=== PATIENT | female | born 1985 | race Caucasian/White ===

== ENCOUNTER 2016-04-19 18:24 | Emergency (ER) | payer OTHER ==
[~2016-04-19] VITALS: Ht 160 cm; Wt 70.1 kg
[~2016-04-19 18:24] MED LIST: NEBI10TA2 PO; NORE1TAB70 PO
[2016-04-19 18:32] VITALS: Ht 160 cm; Wt 70.1 kg
[2016-04-19] MEDS ORDERED: ONDANSETRON INJ 2 MG/ML 2 ML VIAL IV STA ×2 (19:28→21:54)
[2016-04-19] MEDS ORDERED: KETOROLAC TROMETHAMINE 30 MG/ML VIAL IV STA (19:28)
[2016-04-19] MEDS ORDERED: SODIUM CHLORIDE 0.9% 1000ML 1,000 ML IV STA ×2 (19:28→21:06)
[2016-04-19] MEDS ORDERED: FLUT1INH PO (19:37)
[2016-04-19] MEDS ORDERED: GUAISYP4 PO (19:37)
[2016-04-19] MEDS ORDERED: PSEU30TA20 PO (19:37)
[2016-04-19] MEDS ORDERED: IBUP-1050 PO (19:37)
[2016-04-19] MEDS ORDERED: ACET-1256 PO (19:37)
[2016-04-19 20:05] LABS: BASO % 0.2 %; BASO ABS # 0.01 K/uL (0-0.2); COMPLETE YES; HEMATOCRIT 39.8 % (37-47); LYMPH % 20.6 %; MEAN CORPUSCULAR HEMOGLOBIN 31.1 pg (25-34); MEAN CORPUSCULAR HGB CONC 36.2 g/dl (32-36); MEAN PLATELET VOLUME 10.2 fL (7.4-10.4); MONO % 11.5 %; NEUT % 67.7 %; PLATELET COUNT 180 K/uL (130-400); RED BLOOD COUNT 4.63 M/uL (4.2-5.4); WHITE BLOOD COUNT 4.86 K/uL (4.8-10.8)
[2016-04-19 20:30] LABS: BUN/CREATININE RATIO 14.2 (10-20); CALCIUM 8.9 mg/dl (8.5-10.1); CREATININE 0.72 mg/dl (0.60-1.20); MAGNESIUM 2.2 mg/dl (1.8-2.4); POTASSIUM 3.5 mmol/L (3.5-5.1)
[2016-04-19 20:33] LABS: ALB/GLOB RATIO 1.1 (0.9-2)
[2016-04-19 22:57] LABS: PREG INTERNAL NEGATIVE QC NEG CLEAR BACKGROUND; PREG INTERNAL POSITIVE QC POS CONTROL LINE
[2016-04-19 23:31] LABS: URINE APPEARANCE CLOUDY (CLEAR); URINE COLOR DK YELLOW; URINE EPITHELIAL CELL AUTO >30 /lpf (0-5); URINE NITRITE NEG (NEG); URINE PH 5.5 (4.5-7.5); UROBILINOGEN POS (NEG); ZZUR CULT IF INDIC CLEAN CATCH YES
[2016-04-19 23:34] LABS: MANUAL MICROSCOPIC REQUIRED? NO; REVIEW REQ? YES
[2016-04-19 23:35] LABS: URINE BILIRUBIN NEG (NEG)
[2016-04-19 23:36] VITALS: TEMP 36.3
[2016-04-20 00:09] LABS: URINE PATH CASTS 0-3 GRANULAR CASTS /lpf (0)
[2016-04-20] MEDS ORDERED: CEFTRIAXONE SOD INJ 1 GM ADDVIAL IV STA (00:12)
[2016-04-20] MEDS ORDERED: SULF800T23 PO (00:21)
[2016-04-20] MEDS ORDERED: ONDA4TAB10 SL (00:21)
--- NOTE | 2016-04-20 00:24 | EMERGENCY ROOM VISIT NOTE ---
History First contact with patient: 19:16 Chief Complaint: VOMITING Stated Complaint: VOMITING , DIARRHEA Nursing Triage Summary: Patient states ill since Saturday told by pcp she has influenza states "they did nothing" Patient and mother concerned she has not had much intake since Saturday and she may be dehydrated. History of Present Illness The patient is a 30 year old female who presents to the Emergency Department by private vehicle with her family for evaluation of her body aches, cough, nausea , vomiting, diarrhea, and fever. She reports that she developed symptoms including fever, bodyaches, nasal congestion, and cough on Saturday. She was seen yesterday at her primary care provider's office and diagnosed with influenza. She was provided an albuterol inhaler with moderate relief of symptoms. She reports that she developed nausea, vomiting, and diarrhea over the last 24 hours which has worsened. She reports that she's had no blood in her vomit or stool. She is not been able to keep any food or fluids down. The patient rates her current discomfort as a 7/10. She denies any abdominal pain. She denies any headaches, blurry vision, double vision, slurred speech, facial droop, unilateral weakness/numbness, chest pain, palpitations, hemoptysis , hematemesis, hematochezia, melena, hematuria, or dysuria. She denies any chance for . Review of Systems A complete 10-point Review of Systems was discussed with the patient, with pertinent positives and negatives listed in the History of Present Illness. All remaining Review of Systems questions can be considered negative unless otherwise specified. Social History Smoking Status: Never Smoker Smokeless Tobacco Use: No Alcohol Use: none Drug Use: none Marital Status: single Occupation Status: employed Current/Historical Medications Scheduled Fluticasone Furoate-Vilanterol (Breo Ellipta), 1 PUFF PO DAILY Nebivolol Hcl (Bystolic), 10 MG PO DAILY Pseudoephedrine (Sudafed), 30 MG PO DIRECTED Sulfa/Trimethoprim (Bactrim Ds 800MG/160MG), 1 TAB PO BID Scheduled PRN Acetaminophen (Tylenol), 1,000 MG PO DIRECTED PRN for Pain Guaifenesin/Codeine (Robitussin-Ac Syrup), 20 ML PO Q4H PRN for Cough Ibuprofen (Advil), 200 MG PO DIRECTED PRN for Fever Ondasetron Odt (Zofran Odt), 1 TAB SL Q6 PRN for Nausea or Vomiting Allergies Coded Allergies: Levofloxacin (Verified Allergy, Unknown, ., 12/27/13) Physical Exam Vital Signs Date Time Temp Pulse Resp B/P Pulse Ox O2 Delivery O2 Flow Rate FiO2 04/20/16 00:44 89 16 119/71 97 Room Air 04/19/16 23:36 36.3 79 20 117/65 97 Room Air 04/19/16 22:08 92 16 117/77 99 Room Air 04/19/16 20:09 78 18 124/82 98 Room Air 04/19/16 18:32 37.8 106 20 128/87 95 Room Air Pain Rating (0-10): 7 Physical Exam VITAL SIGNS - Vital signs and nursing notes were reviewed. GENERAL - 30-year-old female appearing her stated age who is in no acute distress. Communicates well with provider and answers questions appropriately. HEAD - NC/AT. EYES - PERRL with EOMI bilaterally. Sclera anicteric. Palpebral conjunctiva pink and moist with no injection noted. EARS - No deformities of external structures noted on gross examination bilaterally. No pain elicited with palpation of the tragus bilaterally. External auditory canals without discharge or otorrhea. Tympanic membranes pearly burgos without retraction or bulging. NOSE - Midline and without cyanosis. No epistaxis or purulent drainage noted. Septum midline without deviation or septal hematoma noted. MOUTH/OROPHARYNX - Without perioral cyanosis. Buccal mucosa pink and moist and without leukoplakia. Tongue midline with equal elevation of palate bilaterally. No tonsillar hypertrophy, erythema, or exudates noted. Good dentition noted. NECK - Neck with FROM. Supple to palpation. No nuchal rigidity. LUNGS - Chest wall symmetric without accessory muscle use, intercostals retractions, or central cyanosis. Normal vesicular breath sounds CTA B/L. No wheezes, rales, or rhonchi appreciated. CARDIAC - RRR with S1/S2. No murmur, rubs, or gallops appreciated. ABDOMEN - Abdominal contour flat and without pulsations or visible masses. BS normoactive all four quadrants. No tenderness to palpation appreciated throughout. No guarding. No Rebound Tenderness. Negative Rovsing's. Negative Galdamez's. No palpable masses, hepatosplenomegaly, or ascites noted. EXTREMITIES - No clubbing or peripheral cyanosis. No pretibial edema present. +3 /5 radial and dorsalis pedis pulses palpated throughout. PSYCH - A&Ox3 and cooperates fully with examiner. Pt is very pleasant and interacts well with examiner. Medical Decision & Procedures Laboratory Results 04/19/16 19:50 Red Blood Count 4.63, Mean Corpuscular Volume 86.0, Mean Corpuscular Hemoglobin 31.1, Mean Corpuscular Hemoglobin Concent 36.2, Mean Platelet Volume 10.2, Neutrophils (%) (Auto) 67.7, Lymphocytes (%) (Auto) 20.6, Monocytes (%) (Auto) 11.5, Eosinophils (%) (Auto) 0.0, Basophils (%) (Auto) 0.2, Neutrophils # (Auto ) 3.29, Lymphocytes # (Auto) 1.00, Monocytes # (Auto) 0.56, Eosinophils # (Auto ) 0.00, Basophils # (Auto) 0.01 04/19/16 19:50 Test 04/19/16 19:25 04/19/16 19:50 04/19/16 22:44 Influenza Type A Antigen Neg for Influ A (NEG) Influenza Type B Antigen POS for Influ B (NEG) White Blood Count 4.86 K/uL (4.8-10.8) Red Blood Count 4.63 M/uL (4.2-5.4) Hemoglobin 14.4 g/dL (12.0-16.0) Hematocrit 39.8 % (37-47) Mean Corpuscular Volume 86.0 fL (80-100) Mean Corpuscular Hemoglobin 31.1 pg (25-34) Mean Corpuscular Hemoglobin Concent 36.2 g/dl (32-36) Platelet Count 180 K/uL (130-400) Mean Platelet Volume 10.2 fL (7.4-10.4) Neutrophils (%) (Auto) 67.7 % Lymphocytes (%) (Auto) 20.6 % Monocytes (%) (Auto) 11.5 % Eosinophils (%) (Auto) 0.0 % Basophils (%) (Auto) 0.2 % Neutrophils # (Auto) 3.29 K/uL (1.4-6.5) Lymphocytes # (Auto) 1.00 K/uL (1.2-3.4) Monocytes # (Auto) 0.56 K/uL (0.11-0.59) Eosinophils # (Auto) 0.00 K/uL (0-0.5) Basophils # (Auto) 0.01 K/uL (0-0.2) RDW Standard Deviation 38.7 fL (36.4-46.3) RDW Coefficient of Variation 12.2 % (11.5-14.5) Immature Granulocyte % (Auto) 0.0 % Immature Granulocyte # (Auto) 0.00 K/uL (0.00-0.02) Anion Gap 11.0 mmol/L (3-11) Est Creatinine Clear Calc Drug Dose 107.3 ml/min Estimated GFR () 130.2 Estimated GFR (Non- 112.4 BUN/Creatinine Ratio 14.2 (10-20) Calcium Level 8.9 mg/dl (8.5-10.1) Magnesium Level 2.2 mg/dl (1.8-2.4) Total Bilirubin 0.5 mg/dl (0.2-1) Aspartate Amino Transf (AST/SGOT) 16 U/L (15-37) Alanine Aminotransferase (ALT/SGPT) 18 U/L (12-78) Alkaline Phosphatase 59 U/L (45-117) Total Protein 7.5 gm/dl (6.4-8.2) Albumin 3.9 gm/dl (3.4-5.0) Globulin 3.6 gm/dl (2.5-4.0) Albumin/Globulin Ratio 1.1 (0.9-2) Lipase 123 U/L (73-393) Urine Color DK YELLOW Urine Appearance CLOUDY (CLEAR) Urine pH 5.5 (4.5-7.5) Urine Specific Belcher 1.030 (1.000-1.030) Urine Protein 1+ (NEG) Urine Glucose (UA) NEG (NEG) Urine Ketones 3+ (NEG) Urine Occult Blood 3+ (NEG) Urine Nitrite NEG (NEG) Urine Bilirubin NEG (NEG) Urine Urobilinogen POS (NEG) Urine Leukocyte Esterase TRACE (NEG) Urine WBC (Auto) 10-30 /hpf (0-5) Urine RBC (Auto) 0-4 /hpf (0-4) Urine Hyaline Casts (Auto) 5-10 /lpf (0-5) Urine Epithelial Cells (Auto) >30 /lpf (0-5) Urine Bacteria (Auto) 3+ (NEG) Urine Pathogenic Casts 0-3 GRANULAR CASTS /lpf (0) Urine Yeast (Auto) (NONE PRSENT) Urine Test NEG (NEG) Medications Administered Medications (Trade) Dose Ordered Sig/Marilyn Route Start Time Stop Time Status Last Admin Dose Admin Sodium Chloride (Nss 1000ml) 1,000 ml @ 999 mls/hr Q1H1M STAT IV 04/19/16 19:28 04/19/16 20:28 DC 04/19/16 20:05 999 MLS/HR Ondansetron HCl (Zofran Inj) 4 mg NOW STAT IV 04/19/16 19:28 04/19/16 19:30 DC 04/19/16 20:06 4 MG Ketorolac Tromethamine 30 mg 30 mg NOW STAT IV 04/19/16 19:28 04/19/16 19:30 DC 04/19/16 20:06 30 MG Sodium Chloride (Nss 1000ml) 1,000 ml @ 999 mls/hr Q1H1M STAT IV 04/19/16 21:06 04/19/16 22:06 DC 04/19/16 21:34 999 MLS/HR Ondansetron HCl (Zofran Inj) 4 mg NOW STAT IV 04/19/16 21:54 04/19/16 21:55 DC 04/19/16 22:08 4 MG Ceftriaxone Sodium (Rocephin Inj) 1 gm NOW STAT IV 04/20/16 00:12 04/20/16 00:13 DC 04/20/16 00:22 1 GM Trimethoprim/ Sulfamethoxazole (Sulfameth/ Trimeth Ds 800/ 160MG Home Pack) 1 homepack UD ONCE PO 04/20/16 00:30 04/20/16 00:31 DC 04/20/16 00:43 1 HOMEPACK Ondansetron HCl (ZOFRAN ODT 4MG Home Pack) 1 homepack UD ONCE PO 04/20/16 00:30 04/20/16 00:31 DC 04/20/16 00:43 1 HOMEPACK ED Course Patient was seen and evaluated by myself. Labs were drawn, saline lock in place. The patient was hydrated with a 1000 mL normal saline bolus. She received 4 mg Zofran and 30 mg Toradol intravenously. Her fever had broken prior to my evaluation. Laboratory results demonstrate no acute leukocytosis, worrisome anemia, or bandemia. The patient has no significant electrolyte abnormalities. Patient was unable to provide a urine sample. She was treated with an additional 1000 mL of normal saline. She was taking fluids without issue. She was found to be influenza A+. Patient developed return of vomiting. She was treated with 4 mg Zofran intravenously. Urinalysis was finally provided in the patient's urine was consistent with acute UTI. She was treated with 1 g of Rocephin intravenously. The patient was educated on today' s findings. She was offered admission versus conservative management at home. She elected to be discharged home. She was provided a prescription for Bactrim and Zofran for home. She'll follow-up with her primary care provider from today 's visit. She will return for any changing/worsening symptoms. Patient discharged home afebrile and in good condition. Medical Decision Given the patient's presentation and stated complaints, I did elect to perform the above-mentioned workup. The patient presents today with fever, flulike symptoms, nausea, vomiting, and diarrhea. The patient had no leukocytosis. She was monitored well to IV fluid resuscitation and antinausea medication. The patient clinically appeared much better at this time. She was found to have a UTI. She was treated with IV Rocephin. She was provided Zofran and Bactrim to be used at home. She will follow-up with her primary care provider from today's visit. She will return for any changing or worsening symptoms. Patient discharged home afebrile and in good condition. In the evaluation and treatment of this patient, the following differential diagnoses were considered: Meningitis, encephalitis, mono, strep, sepsis, amongst others. Impression Primary Impression: Nausea, vomiting, and diarrhea Additional Impressions: Influenza A UTI (urinary tract infection) Departure Information Dispostion Home / Self-Care Condition GOOD Prescriptions Ondasetron Odt (ZOFRAN ODT) 4 Mg Tab 1 TAB SL Q6 Y for Nausea or Vomiting for 5 Days, #20 TAB Prov: Jose Ritter PA-C 04/20/16 Sulfa/Trimethoprim (Bactrim Ds 800MG/160MG) Tab 1 TAB PO BID for 5 Days, #10 TAB Prov: Jose Ritter PA-C 04/20/16 Referrals Maynor Aguirre M.D. (PCP) Patient Instructions ED Influenza Ch, My [facility], UTI Additional Instructions You have been treated in the Emergency Department for a Influenza, Urinary Tract Infection (UTI). You have been prescribed Bactrim to be taken as prescribed. This is an antibiotic. All antibiotics have the potential to cause diarrhea. Stop this medication and contact a medical provider if you were to develop any significant adverse side effects including: wheezing, shortness of breath, passing out, vomiting, or a diffuse rash. Always take antibiotics as directed and COMPLETE the ENTIRE course regardless of the improvement of your symptoms. For pain control, you can use the following [id number]-mojkmqi medicines (if >12 yo): - Regular strength (325mg/tab) Tylenol (acetaminophen) 2 tabs every 4-6 hours as needed. Do not exceed 12 tablets in a 24 hour period. Avoid taking more than 4 grams (4000 mg) of Tylenol per day. This includes any other sources of acetaminophen you may take on a regular basis. - Regular strength (200 mg/tab) Advil (ibuprofen) 1-2 tabs every 4-6 hours as needed. Do not exceed a dose of 3200 mg per day. Drink plenty of water and stay well hydrated. As with any trip to the Emergency Department, you should follow-up with your Primary Care Provider from today's visit. Return to the emergency department if your symptoms persist despite treatment plan outlined above or if the following symptoms occur: increased fevers, chills , low back pain, nausea/vomiting, or blood in your urine. Problem Qualifiers Additional Impressions: UTI (urinary tract infection) Urinary tract infection type: site unspecified Hematuria presence: without hematuria Qualified Codes: N39.0 - Urinary tract infection, site not specified
[2016-04-20] MEDS ORDERED: SEPTRA DS HOME PACK 1 EA VIAL PO ONE (00:30)
[2016-04-20] MEDS ORDERED: ONDANSETRON HOME PACK 4MG OD TAB PO ONE (00:30)
[2016-04-20 00:44] VITALS: BP 119/71; PULSE 89; O2SAT 97
== END 2016-04-20 00:55 | disposition home or self-care (01) ==
LOC: C.EDB 18:27 → C.EDC 04-20 00:55
DX: J09.X2 Influenza due to identified novel influenza A virus with other respiratory manifestations (principal); R11.2 Nausea with vomiting, unspecified; R19.7 Diarrhea, unspecified; N39.0 Urinary tract infection, site not specified; Z79.899 Other long term (current) drug therapy; Z88.8 Allergy status to other drugs, medicaments and biological substances

== ENCOUNTER → 2016-07-27 | Outpatient (CLI) | payer OTHER ==
[~2016-07-27] MED LIST changes: +ACET-1256 PO; +FLUT1INH PO; +GUAISYP4 PO; +IBUP-1050 PO; -NORE1TAB70 PO; +PSEU30TA20 PO; +VALA1TAB2 PO
== END | disposition home or self-care (01) ==
LOC: C.PAPS 14:32
PROVIDERS: ATTEND Physician Assistant
DX: Z01.419 Encounter for gynecological examination (general) (routine) without abnormal findings (principal)

== ENCOUNTER 2017-01-17 05:39 | Emergency (ER) | payer OTHER ==
[~2017-01-17] VITALS: Ht 162.6 cm; Wt 75.4 kg
[~2017-01-17 05:39] MED LIST changes: -VALA1TAB2 PO
[2017-01-17 05:43] VITALS: TEMP 37; Ht 162.6 cm; Wt 75.4 kg
[2017-01-17] MEDS ORDERED: OXYCODONE IR HOME PACK PO ONE (06:00)
[2017-01-17] MEDS ORDERED: VALA1TAB2 PO (06:10)
[2017-01-17 06:27] VITALS: BP 125/88; PULSE 78; O2SAT 99
--- NOTE | 2017-01-17 06:29 | EMERGENCY ROOM VISIT NOTE ---
History First contact with patient: 05:58 Chief Complaint: HEAD PAIN Stated Complaint: BUMP ON HEAD-PAIN History of Present Illness The patient is a 31 year old female who presents to the Emergency Room with complaints of painful burning rash to the left side of her scalp for the past day that is getting worse. Pain currently 5 out of 10. Nothing makes it better or worse. Patient states it feels like a burning area. She saw the family doctor yesterday and was unsure what was going on. The rash has spread. She had chickenpox as a child. Patient had a burning pain before the rash. Patient denies fevers, eye pain, ear pain, nasal pain, chest pain, dyspnea, cough, congestion. Review of Systems See HPI for pertinent positives & negatives. A total of 10 systems reviewed and were otherwise negative. Past Medical/Surgical History HTN Social History Smoking Status: Never Smoker Alcohol Use: none Drug Use: none Marital Status: single Occupation Status: employed Current/Historical Medications Scheduled Fluticasone Furoate-Vilanterol (Breo Ellipta), 1 PUFF PO DAILY Nebivolol Hcl (Bystolic), 10 MG PO DAILY Pseudoephedrine (Sudafed), 30 MG PO DIRECTED Valacyclovir Hcl (Valtrex), 1,000 MG PO TID Scheduled PRN Acetaminophen (Tylenol), 1,000 MG PO DIRECTED PRN for Pain Guaifenesin/Codeine (Robitussin-Ac Syrup), 20 ML PO Q4H PRN for Cough Ibuprofen (Advil), 200 MG PO DIRECTED PRN for Fever Physical Exam Vital Signs Date Time Temp Pulse Resp B/P (MAP) Pulse Ox O2 Delivery O2 Flow Rate FiO2 01/17/17 05:43 37.0 83 18 133/87 98 Room Air Physical Exam VITALS: Vitals are noted on the nurse's note and reviewed by myself. Vital signs stable. GENERAL: Pleasant female, in no acute distress, nondiaphoretic, well-developed well-nourished. SKIN: left C2 dermatome with painful grouped erythematous papules. The rest of the skin was without rashes, erythema, edema, or bruising. There is no tenting of the skin. Capillary reflex less than 2 seconds. HEAD: Normocephalic atraumatic. EARS: External auditory canals clear, tympanic membranes pearly burgos without erythema or effusion bilaterally. No rash to the inner ear canals EYES: Pupils equal round and reactive to light and accommodation. Conjunctivae without injection, sclerae without icterus. Extraocular movements intact.. no ocular involvement of herpes zoster NOSE: Patent, turbinates without inflammation or discharge. No sinus tenderness. No rash to the nose. MOUTH: Mucous membranes moist. Pharynx without erythema or exudate. Uvula midline. Airway patent. Tongue does not deviate. NECK: Supple without nuchal rigidity. No lymphadenopathy. No thyromegaly. Cervical spine is nontender. No JVD. HEART: Regular rate and rhythm without murmurs gallops or rubs. LUNGS: Clear to auscultation bilaterally without wheezes, rales or rhonchi. No dullness to percussion. No retractions or accessory muscle use. ABDOMEN: Positive bowel sounds x 4. Normal tympanic percussion. Soft, nontender, without masses or organomegaly. Galdamez sign negative. No guarding or rebound tenderness. MUSCULOSKELETAL: No muscle atrophy, erythema, or edema noted. NEURO: Patient was alert and oriented to person place and time. Normal sensation to light and sharp touch. No focal neurological deficits. Medical Decision & Procedures ED Course Prior records/ancillary studies reviewed. Triage Nursing notes reviewed. Additional history obtained from family The patient's history was concerning for a rash. Differential diagnosis: Etiologies such as contact dermatitis, viral exanthem, urticaria, allergic reaction, Berumen-Rishi syndrome, toxic epidermal necrolysis, erythema multiforme, cellulitis, scabies, HSV, varicella, zoster, eczema, staph scalded skin syndrome, fungal infection, as well as others were entertained. Physical examination: As above ER treatment provided: Valtrex On reassessment the patient felt better. Diagnostic interpretation by me: Deferred The etiology for the patient's rash appears to be consistent with herpes zoster. Patient had burning sensation prior to the rash. It is over the C2 dermatome on the left side. There is no ocular involvement. There was no ear involvement. No rash the nose. Patient was counseled on diagnosis and signs and symptoms. Patient states she was healthy with no active medical problems. Patient was neurovascularly and neurologically intact. She was well-appearing. She is advised follow-up family care in a few days or here in the ER sooner for eye pain, ear pain, worsening signs or symptoms or as needed. By the evaluation outlined above emergent etiologies such as Berumen-Rishi syndrome, toxic epidermal necrolysis, erythema multiforme, cellulitis, scabies, HSV, staph scalded skin syndrome, urticaria, allergic reaction, as well as others were deemed relatively unlikely. The pt informed about the findings as listed above. All questions were answered and pleased with the treatment. Return instructions were outlined and the patient was discharged in stable condition. Outpatient prescription management: Valtrex Referral: The patient was referred back to their primary care physician for follow-up in 2 -3 days for a recheck of the current condition. Medical Decision As above Medication Reconcilliation Current Medication List: was personally reviewed by me Blood Pressure Screening Patient's blood pressure: Normal blood pressure Impression Primary Impression: Herpes zoster Departure Information Dispostion Home / Self-Care Condition GOOD Prescriptions Valacyclovir Hcl (VALTREX) 1 Gm Tab 1000 MG PO TID for 7 Days, #21 TAB Prov: Celia Blackwell .BERTHA 01/17/17 Forms WORK / SCHOOL INSTRUCTIONS, HOME CARE DOCUMENTATION FORM, IMPORTANT VISIT INFORMATION Patient Instructions Shingles Herpes Zoster, My [facility] Additional Instructions Valtrex 1 g 3 times a day for 7 days.. Any medication can cause an allergic reaction, stop the pills immediately and return to the ER for rash, hives, breathing difficulties, or swelling. Oxycodone (OxyIR) 5mg: Take 1-2 pills every four hours for breakthrough pain. Avoid alcohol, operating machinery or dangerous equipment, working on ladders or roofs, DRIVING, or situations where being under the influence may be dangerous. It is recommended to use an lpkn-rft-keeveah stool softener such as Colace, 100mg twice daily while taking this medication to avoid constipation. Ibuprofen(Motrin, Advil) may be used for fever or pain. Use 600mg every six hours as needed. Take with food. Avoid using more than 2400mg in a 24 hour period. Do not use 2400mg per day for more than three consecutive days without physician direction. Prolonged inappropriate use can lead to stomach upset or ulcers. (AND/OR) Acetaminophen(Tylenol) may be used for fever or pain. Use 1000mg every six hours as needed. Avoid using more than 3000mg in a 24 hour period. Rest and drink plenty of fluids as tolerated. Continue current medications. Do not scratch at the area. Your rash might spread a little bit more before it gets better. It may take a few weeks to clear up. You may have chronic pain to the area. Return to the ER immediately for eye pain, vision problems, inner ear pain, abdominal pain, vomiting, fevers, chest pains, difficulty breathing, worsening of your condition, or as needed. Follow up with your primary physician in 2-3 days for a recheck of your current condition. Problem Qualifiers Primary Impression: Herpes zoster Herpes zoster complications: without complications Qualified Codes: B02.9 - Zoster without complications
== END 2017-01-17 06:28 | disposition home or self-care (01) ==
LOC: C.EDB 05:40 → C.EDA 06:28
DX: B02.9 Zoster without complications (principal); I10 Essential (primary) hypertension; Z79.899 Other long term (current) drug therapy

== ENCOUNTER 2017-06-12 18:55 | Emergency (ER) | payer OTHER ==
[~2017-06-12] VITALS: Ht 162.6 cm; Wt 78.2 kg
[~2017-06-12 18:55] MED LIST changes: -ACET-1256 PO
[2017-06-12 18:59] VITALS: TEMP 36.8; Ht 162.6 cm; Wt 78.2 kg
[2017-06-12] MEDS ORDERED: METOCLOPRAMIDE HCL INJ 5 MG/ML 2 ML VIAL IV STA (19:19)
[2017-06-12] MEDS ORDERED: SODIUM CHLORIDE 0.9% 1000ML 2,000 ML IV STA (19:19)
[2017-06-12] MEDS ORDERED: PRENTAB89 PO (19:27)
[2017-06-12] MEDS ORDERED: MULT-240 PO (19:27)
--- NOTE | 2017-06-12 19:30 | EMERGENCY ROOM VISIT NOTE ---
History Report prepared by Natalee: Sherley Rogers Under the Supervision of: Dr. Medhat Oliveira M.D. First contact with patient: 19:15 Chief Complaint: FLU LIKE SX Stated Complaint: ACHES,NECK,LEGS,JEFFRIES,FEVER History of Present Illness The patient is a 31 year old female who presents to the Emergency Room with complaints of flu-like symptoms beginning today. The patient reports having a fever, headache, body aches, neck pain, and fatigue. She denies having nausea, vomiting, and diarrhea. The patient reports taking Tylenol today for her symptoms. The patient reports that she is 4 weeks and states that she was referred by her OBGYN's nurse. The patient states that she started Amoxicillin 3 days ago for a UTI. The patient reports having white vaginal discharge today, but denies having vaginal bleeding. She reports a history of hypertension but states that she stopped taking her blood pressure medication about 6 months ago. Source of History: patient Onset: today Position: other (global) Quality: other (flu-like symptoms ) Associated Symptoms: + fevers, + headache, + neck pain, + fatigue, No nausea , No vomiting, No diarrhea Note: additional symptoms: body aches, white vaginal discharge denies: bloody vaginal discharge Review of Systems See HPI for pertinent positives and negatives. A total of ten systems were reviewed and were otherwise negative. Family History Cancer Diabetes mellitus Heart disease Hypertension Social History Smoking Status: Never Smoker Alcohol Use: none Drug Use: none Marital Status: single Occupation Status: employed Current/Historical Medications Scheduled Miconazole Nitrate Vaginal (Miconazole Nitrate), 1 APPL TOP DAILY Multiple Vitamins W/ Minerals (Womens One Daily), 1 TAB PO DAILY Multivit-Min W/Fe-Fa ( And Iron), 1 TAB PO DAILY Scheduled PRN Acetaminophen (Tylenol), 1,000 MG PO UD PRN for Pain Allergies Coded Allergies: Levofloxacin (Verified Allergy, Unknown, ., 12/27/13) Physical Exam Vital Signs Date Time Temp Pulse Resp B/P (MAP) Pulse Ox O2 Delivery O2 Flow Rate FiO2 06/12/17 23:48 86 16 128/81 98 06/12/17 22:50 104 18 136/88 98 Room Air 06/12/17 20:53 106 18 135/88 100 Room Air 06/12/17 18:59 36.8 84 18 137/75 99 Room Air Physical Exam GENERAL: Awake, alert, anxious and fatigued-appearing, in no distress HENT: Normocephalic, atraumatic. Dry mucous membranes, otherwise oropharynx unremarkable. EYES: Normal conjunctiva. Sclera non-icteric. NECK: Supple. No nuchal rigidity. FROM. No JVD. RESPIRATORY: Clear to auscultation. CARDIAC: Regular rate, normal rhythm. Extremities warm and well perfused. Pulses equal. ABDOMEN: Soft, non-distended. No tenderness to palpation. No rebound or guarding. No masses. RECTAL: Deferred. : No lesions. Moderate thick white discharge. No CMT or AT. MUSCULOSKELETAL: Chest examination reveals no tenderness. The back is symmetrical on inspection without obvious abnormality. There is no CVA tenderness to palpation. No joint edema. LOWER EXTREMITIES: Calves are equal size bilaterally and non-tender. No edema. No discoloration. NEURO: Normal sensorium. No sensory or motor deficits noted. SKIN: No rash or jaundice noted. Medical Decision & Procedures ER Provider Diagnostic Interpretation: Radiology results as stated below per my review and radiologist interpretation: ULTRASOUND CLINICAL HISTORY: Elevated hcg, fevers, r/o ectopic COMPARISON STUDY: CT of the abdomen and pelvis December 27, 2013. TECHNIQUE: Transabdominal and transvaginal sonography of the pelvis was performed. FINDINGS: No intrauterine gestational sac is identified. The endometrium measures 1.5 cm in thickness. Right ovary measures 4 x 4.7 x 3.1 cm and contains a 3.1 x 2.6 x 3 cm complex hypoechoic lesion with adjacent hypervascularity. This suggests a corpus luteal cyst. The left ovary is normal, measuring 2.9 x 1.6 x 2.6 cm. There is color flow within each ovary. No adnexal mass is identified. A small amount of fluid is noted within the pelvis which is simple appearing. IMPRESSION: 1. No intrauterine gestational sac identified. Thickened endometrium, measuring 1.5 cm. Given positive test, differential considerations include a normal early intrauterine gestation, missed spontaneous and sonographically occult ectopic . Close clinical follow-up, including serial beta hCG levels and follow-up pelvic ultrasound is recommended. 2. 3.1 cm complex hypoechoic right ovarian lesion suggestive of a corpus luteal cyst. 3. Small amount of fluid within the pelvis. Electronically signed by: Amos Vaughn M.D. 06/12/2017 9:56 PM Dictated Date/Time: 06/12/2017 9:53 PM Laboratory Results 06/12/17 19:46 Red Blood Count 4.62, Mean Corpuscular Volume 87.4, Mean Corpuscular Hemoglobin 30.7, Mean Corpuscular Hemoglobin Concent 35.1, Mean Platelet Volume 9.7, Neutrophils (%) (Auto) 63.5, Lymphocytes (%) (Auto) 24.7, Monocytes (%) (Auto) 10.4, Eosinophils (%) (Auto) 0.9, Basophils (%) (Auto) 0.2, Neutrophils # (Auto ) 4.09, Lymphocytes # (Auto) 1.59, Monocytes # (Auto) 0.67, Eosinophils # (Auto ) 0.06, Basophils # (Auto) 0.01 06/12/17 19:46 Test 06/12/17 19:31 06/12/17 19:45 06/12/17 19:46 06/12/17 22:50 Influenza Type A (RT-PCR) Neg for Influ A (NEG) Influenza Type B (RT-PCR) Neg for Influ B (NEG) Urine Color YELLOW Urine Appearance CLEAR (CLEAR) Urine pH 7.0 (4.5-7.5) Urine Specific [place] 1.014 (1.000-1.030) Urine Protein NEG (NEG) Urine Glucose (UA) NEG (NEG) Urine Ketones NEG (NEG) Urine Occult Blood NEG (NEG) Urine Nitrite NEG (NEG) Urine Bilirubin NEG (NEG) Urine Urobilinogen NEG (NEG) Urine Leukocyte Esterase NEG (NEG) White Blood Count 6.44 K/uL (4.8-10.8) Red Blood Count 4.62 M/uL (4.2-5.4) Hemoglobin 14.2 g/dL (12.0-16.0) Hematocrit 40.4 % (37-47) Mean Corpuscular Volume 87.4 fL (80-100) Mean Corpuscular Hemoglobin 30.7 pg (25-34) Mean Corpuscular Hemoglobin Concent 35.1 g/dl (32-36) Platelet Count 222 K/uL (130-400) Mean Platelet Volume 9.7 fL (7.4-10.4) Neutrophils (%) (Auto) 63.5 % Lymphocytes (%) (Auto) 24.7 % Monocytes (%) (Auto) 10.4 % Eosinophils (%) (Auto) 0.9 % Basophils (%) (Auto) 0.2 % Neutrophils # (Auto) 4.09 K/uL (1.4-6.5) Lymphocytes # (Auto) 1.59 K/uL (1.2-3.4) Monocytes # (Auto) 0.67 K/uL (0.11-0.59) Eosinophils # (Auto) 0.06 K/uL (0-0.5) Basophils # (Auto) 0.01 K/uL (0-0.2) RDW Standard Deviation 39.8 fL (36.4-46.3) RDW Coefficient of Variation 12.4 % (11.5-14.5) Immature Granulocyte % (Auto) 0.3 % Immature Granulocyte # (Auto) 0.02 K/uL (0.00-0.02) Anion Gap 5.0 mmol/L (3-11) Est Creatinine Clear Calc Drug Dose 93.8 ml/min Estimated GFR () 101.5 Estimated GFR (Non- 87.6 BUN/Creatinine Ratio 10.8 (10-20) Calcium Level 9.0 mg/dl (8.5-10.1) Total Bilirubin 0.4 mg/dl (0.2-1) Direct Bilirubin 0.1 mg/dl (0-0.2) Aspartate Amino Transf (AST/SGOT) 22 U/L (15-37) Alanine Aminotransferase (ALT/SGPT) 23 U/L (12-78) Alkaline Phosphatase 65 U/L (45-117) Total Protein 7.9 gm/dl (6.4-8.2) Albumin 4.0 gm/dl (3.4-5.0) Lipase 171 U/L (73-393) Human Chorionic Gonadotropin, Quant 85 mIU/mL Date/Time Source Procedure Growth Status 06/12/17 22:50 Vaginal Drainage Trichomonas Preparation - Final Complete Laboratory results reviewed by me Medications Administered Medications (Trade) Dose Ordered Sig/Marilyn Route Start Time Stop Time Status Last Admin Dose Admin Sodium Chloride 2,000 ml @ 999 mls/hr Q2H1M STAT IV 06/12/17 19:19 06/12/17 21:19 DC 06/12/17 19:54 999 MLS/HR Sodium Chloride 1,000 ml @ 999 mls/hr Q1H1M STAT IV 06/12/17 22:50 06/12/17 23:50 DC 06/12/17 23:06 999 MLS/HR Acetaminophen (Tylenol Tab) 1,000 mg NOW STAT PO 06/12/17 22:52 06/12/17 22:53 DC 06/12/17 23:07 1,000 MG ED Course 1917: The patient was evaluated in room C5. A complete history and physical exam was performed. 2057: I reevaluated the patient. I ordered a transvaginal ultrasound. 2212: The patient reports feeling a bit better but still feels achy. Medical Decision I reviewed the patient's past medical history, medications, and the nursing notes as described above. Differential diagnosis: Etiologies such as viral syndrome, otitis, pharyngitis, pneumonia, influenza, meningitis, urinary tract infection, sepsis, bacteremia, as well as others were entertained. The patient is a 31-year-old woman who presents emergency department with fevers , body aches and generalized fatigue over the past couple of days per hpi. Of note, the symptoms occur in the setting of having a positive test at urgent care. Her last menstrual period was May 10 estimating her GA of approximately 4 weeks. On arrival the patient is fatigued appearing but no acute distress, afebrile stable vital signs. WBC within normal limits. Chemistry unremarkable. The patient's hCG is only 85 which is low for a 4 week fetus. Thus given the patient's fevers and systemic symptoms ectopic is in the differential despite lack of abdominal pain. Transvaginal ultrasound was performed and demonstrates small amount of free fluid, thickened endometrium but no definitive IUP, thus with broad differential including early IUP, versus missed , versus occult ectopic . Pelvic exam does demonstrate some moderate thick white discharge consistent with candidal infection. Otherwise the patient's pelvic exam itself was typical for the patient in that she always has significant pain and this discomfort today was not any different. No CMT or adnexal tenderness. GCC, trichomonas, HSV were sent and pending. Case was discussed with Dr. Gregory, OB console operator, who agrees that we can have the patient follow-up outpatient with a 48 hour hCG. We agreed to hold any empiric treatment for GCC given no clear exam findings to suggest infection and likely viral illness as etiology for the patient's symptoms. Findings and plan for follow-up reviewed with patient. Patient agreeable and d/c 'd per discharge instructions. Consults Time Called: 2320 Consulting Physician: Dr. Gregory, CHARISSE SAP BUSINESS ANALYST Returned Call: [phone] Patient to follow in clinic for 48 hour repeat hcg and further f/u. Impression Primary Impression: Myalgia Additional Impressions: Dehydration Elevated serum hCG Vaginal candidiasis Scribe Attestation The scribe's documentation has been prepared under my direction and personally reviewed by me in its entirety. I confirm that the note above accurately reflects all work, treatment, procedures, and medical decision making performed by me. Departure Information Dispostion Home / Self-Care Prescriptions Miconazole Nitrate Vaginal (MICONAZOLE NITRATE) 2 % Cre 1 APPL TOP DAILY for 7 Days, #1 TUBE Insert 1 applicatorful intravaginally at bedtime for 7 days Prov: Medhat Oliveira M.D. 06/12/17 Referrals No Doctor, Assigned (PCP) Rufina Gregory MD Patient Instructions ED Dehydration, ED Muscle Aching, ED Vaginal Infec Fungal Emi, My [facility] Additional Instructions Please follow up with your obstetricians office to arrange for a 48-hour repeat hcg level and re-evaluation. Your symptoms are likely related to dehydration in the setting of a possible early viral illness. You were also found to have a vaginal yeast infection. Your ultrasound did not show evidence of an intrauterine at this time. You should follow closely with your fender mechanic apprentice for repeat hcg levels and ultrasound until a is confirmed or other causes, which could include a miscarriage or ectopic , are investigated. Otherwise, your exam, lab results, and ultrasound did not show signs of an emergent condition at this time. Acetaminophen for pain and fevers as needed. Topical miconazole, antifungal, nightly for 7 days. Drink plenty of fluids to ensure hydration. Return to the emergency department for worsening symptoms as described in the accompanying instructions. Problem Qualifiers
[2017-06-12] MEDS ORDERED: ACET-1256 PO (19:37)
[2017-06-12 19:59] LABS: BASO % 0.2 %; BASO ABS # 0.01 K/uL (0-0.2); EOS % 0.9 %; EOS ABS # 0.06 K/uL (0-0.5); HEMATOCRIT 40.4 % (37-47); HEMOGLOBIN 14.2 g/dL (12.0-16.0); IG# 0.02 K/uL (0.00-0.02); LYMPH % 24.7 %; LYMPH ABS # 1.59 K/uL (1.2-3.4); MEAN CELL VOLUME 87.4 fL (80-100); MEAN CORPUSCULAR HEMOGLOBIN 30.7 pg (25-34); MEAN CORPUSCULAR HGB CONC 35.1 g/dl (32-36); MEAN PLATELET VOLUME 9.7 fL (7.4-10.4); MONO % 10.4 %; MONO ABS # 0.67 K/uL (0.11-0.59); NEUT % 63.5 %; NEUT ABS # 4.09 K/uL (1.4-6.5); PLATELET COUNT 222 K/uL (130-400); RED CELL DISTRIBUTION WIDTH CV 12.4 % (11.5-14.5); RED CELL DISTRIBUTION WIDTH SD 39.8 fL (36.4-46.3); WHITE BLOOD COUNT 6.44 K/uL (4.8-10.8)
[2017-06-12 20:15] LABS: CREATININE 0.88 mg/dl (0.60-1.20); POTASSIUM 3.4 mmol/L (3.5-5.1)
[2017-06-12 20:18] LABS: TOTAL PROTEIN 7.9 gm/dl (6.4-8.2)
[2017-06-12] MEDS: DiphenhydrAMINE HCL 50 MG/ML VIAL IV STA ×2 (21:04→22:05)
[2017-06-12 21:30] LABS: INFLUENZA A PCR Neg for Influ A (NEG); INFLUENZA B PCR Neg for Influ B (NEG)
--- NOTE | 2017-06-12 21:58 | DIAGNOSTIC IMAGING REPORT ---
ULTRASOUND CLINICAL HISTORY: Elevated hcg, fevers, r/o ectopic COMPARISON STUDY: CT of the abdomen and pelvis December 27, 2013. TECHNIQUE: Transabdominal and transvaginal sonography of the pelvis was performed. FINDINGS: No intrauterine gestational sac is identified. The endometrium measures 1.5 cm in thickness. Right ovary measures 4 x 4.7 x 3.1 cm and contains a 3.1 x 2.6 x 3 cm complex hypoechoic lesion with adjacent hypervascularity. This suggests a corpus luteal cyst. The left ovary is normal, measuring 2.9 x 1.6 x 2.6 cm. There is color flow within each ovary. No adnexal mass is identified. A small amount of fluid is noted within the pelvis which is simple appearing. IMPRESSION: 1. No intrauterine gestational sac identified. Thickened endometrium, measuring 1.5 cm. Given positive test, differential considerations include a normal early intrauterine gestation, missed spontaneous and sonographically occult ectopic . Close clinical follow-up, including serial beta hCG levels and follow-up pelvic ultrasound is recommended. 2. 3.1 cm complex hypoechoic right ovarian lesion suggestive of a corpus luteal cyst. 3. Small amount of fluid within the pelvis. Electronically signed by: Amos Vaughn M.D. 06/12/2017 9:56 PM Dictated Date/Time: 06/12/2017 9:53 PM
[2017-06-12] MEDS ORDERED: SODIUM CHLORIDE 0.9% 1000ML 1,000 ML IV STA (22:50)
[2017-06-12] MEDS ORDERED: ACETAMINOPHEN 500 MG TAB PO STA (22:52)
[2017-06-12] MEDS ORDERED: MICONAZOLE NITRATE 2% CR 30 GM TUBE EXT STA (22:52)
[2017-06-12] MEDS ORDERED: MICO2CRE TOP (23:24)
[2017-06-12 23:48] VITALS: BP 128/81; PULSE 86; O2SAT 98
== END 2017-06-12 23:49 | disposition home or self-care (01) ==
LOC: C.EDB 18:57 → C.EDC 23:49
DX: M79.1 Myalgia (principal); E86.0 Dehydration; B37.3 Candidiasis of vulva and vagina; R50.9 Fever, unspecified; I10 Essential (primary) hypertension; Z88.1 Allergy status to other antibiotic agents; Z83.3 Family history of diabetes mellitus; Z82.49 Family history of ischemic heart disease and other diseases of the circulatory system

== ENCOUNTER → 2017-06-18 | Outpatient (CLI) | payer OTHER ==
[~2017-06-18] MED LIST changes: +ACET-1256 PO; +DOCU-94 PO; -FLUT1INH PO; -GUAISYP4 PO; -IBUP-1050 PO; +MICO2CRE TOP; +MULT-240 PO; -NEBI10TA2 PO; +POLY335019 PO; +PRENTAB89 PO; -PSEU30TA20 PO; +PSYL0.524 PO
== END | disposition home or self-care (01) ==
LOC: C.LABPBG 09:51
PROVIDERS: ATTEND Obstetrics & Gynecology
DX: O26.899 Other specified pregnancy related conditions, unspecified trimester (principal); R10.2 Pelvic and perineal pain; Z3A.00 Weeks of gestation of pregnancy not specified

== ENCOUNTER 2017-06-20 12:36 | Emergency (ER) | payer OTHER ==
[~2017-06-20] VITALS: Ht 162.6 cm; Wt 76.0 kg
[~2017-06-20 12:36] MED LIST changes: -DOCU-94 PO; -POLY335019 PO; -PSYL0.524 PO
[2017-06-20 12:53] VITALS: TEMP 36.7; Ht 162.6 cm; Wt 76.0 kg
[2017-06-20] MEDS ORDERED: PSYL0.524 PO (14:58)
[2017-06-20] MEDS ORDERED: DOCU-94 PO (14:58)
[2017-06-20] MEDS ORDERED: POLY335019 PO (14:58)
--- NOTE | 2017-06-20 16:46 | DIAGNOSTIC IMAGING REPORT ---
BILATERAL LOWER EXTREMITY VENOUS DOPPLER HISTORY: Acute bilateral lower extremity pain and swelling bilateral LE pain 5 weeks r/o dvt COMPARISON STUDY: None. FINDINGS: There is normal compressibility, flow, and augmentation within the bilateral lower extremity deep venous systems. IMPRESSION: No sonographic evidence of deep venous thrombosis within the right or left lower extremity. Electronically signed by: Amarjit Hanson M.D. 06/20/2017 4:44 PM Dictated Date/Time: 06/20/2017 4:43 PM
--- NOTE | 2017-06-20 17:31 | EMERGENCY ROOM VISIT NOTE ---
History First contact with patient: 13:39 Chief Complaint: URINARY SYMPTOMS Stated Complaint: CANT URINATE Nursing Triage Summary: pt states has not voided since 1900 last pm. pt walked into triage and was drinking water. pt states sits on toilet to pee and nothing comes out. pt states it is painful to void. pt is 5 weeks . History of Present Illness The patient is a 31 year old female who presents to the Emergency Room with complaints of difficulty urinating for the last few days. The patient is currently being treated with amoxicillin for urinary tract infection. She was also diagnosed with a yeast infection. She has been using Monistat nightly for the last 5 days per her TANK FURNACE OPERATOR doctor's recommendations. The patient currently reports that she is 5 weeks . She denies any lower abdominal cramping or bleeding. She is also complaining of pain in the back of her thighs. This is been going on for the last several days. She describes it as a tightness. She denies any weakness in her extremities. No bowel incontinence. The patient reports no urination for 8 days. She is supposed to see the urologist tomorrow. Review of Systems 10 system review performed and negative unless noted in HPI or below Past Medical/Surgical History Endometriosis Family History Cancer Diabetes mellitus Heart disease Hypertension Social History Smoking Status: Never Smoker Alcohol Use: none Drug Use: none Marital Status: single Occupation Status: employed Current/Historical Medications Scheduled Docusate Sodium (Colace), 1 CAP PO BID Multiple Vitamins W/ Minerals (Womens One Daily), 1 TAB PO DAILY Polyethylene Glycol 3350 (Miralax), 17 GM PO DAILY Multivit-Min W/Fe-Fa ( And Iron), 1 TAB PO DAILY Psyllium (Metamucil), 1 DOSE PO UD Scheduled PRN Acetaminophen (Tylenol), 1,000 MG PO UD PRN for Pain Physical Exam Vital Signs Date Time Temp Pulse Resp B/P (MAP) Pulse Ox O2 Delivery O2 Flow Rate FiO2 06/20/17 21:13 81 18 135/70 100 06/20/17 20:10 96 18 129/76 100 Room Air 06/20/17 18:55 99 18 108/67 100 Room Air 06/20/17 17:10 78 18 128/78 98 Room Air 06/20/17 15:15 81 18 127/81 98 Room Air 06/20/17 12:53 36.7 101 16 141/90 96 Room Air Physical Exam VITALS: Vitals are noted on the nurse's note and reviewed by myself. Vital signs stable. GENERAL: 31-year-old female, in no acute distress, nondiaphoretic, well- developed well-nourished. SKIN: The skin was without rashes, erythema, edema, or bruising. s. HEAD: Normocephalic atraumatic. MOUTH: Mucous membranes moist. NECK: Supple without nuchal rigidity. No lymphadenopathy. Cervical spine is nontender. No JVD. HEART: Regular rate and rhythm without murmurs gallops or rubs. LUNGS: Clear to auscultation bilaterally without wheezes, rales or rhonchi. No accessory muscle use. ABDOMEN: Positive bowel sounds x 4.Soft, nontender, without organomegaly. No guarding or rebound tenderness. MUSCULOSKELETAL: No muscle atrophy, erythema, or edema noted. No tenderness over the lumbar spinous processes. No tenderness over the SI joints bilaterally. Mild tenderness to palpation over the posterior thighs bilaterally. DP pulse +2.. Strength 5/5 throughout. NEURO: Patient was alert and oriented to person place and time. Normal sensation to touch. No focal neurological deficits. Medical Decision & Procedures ER Provider Diagnostic Interpretation: Bilateral LE US IMPRESSION: No sonographic evidence of deep venous thrombosis within the right or left lower extremity. Electronically signed by: Amarjit Hanson M.D. 06/20/2017 4:44 PM Dictated Date/Time: 06/20/2017 4:43 PM The status of this report is Signed. Draft = Not yet reviewed or approved by Radiologist. Signed = Reviewed and approved by Radiologist. ultrasound IMPRESSION: 1. 0.6 cm hypoechoic collection of the fundal endometrium suggests possible early gestational sac without yolk sac or pole identified. Alternative diagnosis would include a pseudocyst sac with occult ectopic gestation or fluid collection from a missed . Close follow-up with serial quantitative beta hCG analysis and ultrasound imaging is needed. 2. Complex cystic structure of the right ovary measuring up to 5.1 cm suggests corpus luteal cyst. No evidence of ovarian torsion. 3. Unremarkable sonographic appearance of the left ovary. The above report was generated using voice recognition software. It may contain grammatical, syntax or spelling errors. Electronically signed by: Amarjit Hanson M.D. 06/20/2017 8:20 PM Renal ultrasound IMPRESSION: Unremarkable sonographic appearance of the bilateral kidneys and urinary bladder without renal calculi or hydronephrosis. The above report was generated using voice recognition software. It may contain grammatical, syntax or spelling errors. Electronically signed by: Amarjit Hanson M.D. 06/20/2017 8:14 PM Dictated Date/Time: 06/20/2017 8:13 PM Laboratory Results 06/20/17 18:12 Red Blood Count 4.79, Mean Corpuscular Volume 87.1, Mean Corpuscular Hemoglobin 30.9, Mean Corpuscular Hemoglobin Concent 35.5, Mean Platelet Volume 9.8, Neutrophils (%) (Auto) 69.5, Lymphocytes (%) (Auto) 24.2, Monocytes (%) (Auto) 5.8, Eosinophils (%) (Auto) 0.1, Basophils (%) (Auto) 0.3, Neutrophils # (Auto) 5.12, Lymphocytes # (Auto) 1.78, Monocytes # (Auto) 0.43, Eosinophils # (Auto) 0.01, Basophils # (Auto) 0.02 06/20/17 18:12 Test 06/20/17 14:14 06/20/17 18:12 Urine Color YELLOW Urine Appearance CLEAR (CLEAR) Urine pH 7.0 (4.5-7.5) Urine Specific [place] 1.018 (1.000-1.030) Urine Protein NEG (NEG) Urine Glucose (UA) NEG (NEG) Urine Ketones NEG (NEG) Urine Occult Blood NEG (NEG) Urine Nitrite NEG (NEG) Urine Bilirubin NEG (NEG) Urine Urobilinogen NEG (NEG) Urine Leukocyte Esterase NEG (NEG) White Blood Count 7.37 K/uL (4.8-10.8) Red Blood Count 4.79 M/uL (4.2-5.4) Hemoglobin 14.8 g/dL (12.0-16.0) Hematocrit 41.7 % (37-47) Mean Corpuscular Volume 87.1 fL (80-100) Mean Corpuscular Hemoglobin 30.9 pg (25-34) Mean Corpuscular Hemoglobin Concent 35.5 g/dl (32-36) Platelet Count 274 K/uL (130-400) Mean Platelet Volume 9.8 fL (7.4-10.4) Neutrophils (%) (Auto) 69.5 % Lymphocytes (%) (Auto) 24.2 % Monocytes (%) (Auto) 5.8 % Eosinophils (%) (Auto) 0.1 % Basophils (%) (Auto) 0.3 % Neutrophils # (Auto) 5.12 K/uL (1.4-6.5) Lymphocytes # (Auto) 1.78 K/uL (1.2-3.4) Monocytes # (Auto) 0.43 K/uL (0.11-0.59) Eosinophils # (Auto) 0.01 K/uL (0-0.5) Basophils # (Auto) 0.02 K/uL (0-0.2) RDW Standard Deviation 39.4 fL (36.4-46.3) RDW Coefficient of Variation 12.3 % (11.5-14.5) Immature Granulocyte % (Auto) 0.1 % Immature Granulocyte # (Auto) 0.01 K/uL (0.00-0.02) Anion Gap 5.0 mmol/L (3-11) Est Creatinine Clear Calc Drug Dose 105.7 ml/min Estimated GFR () 119.2 Estimated GFR (Non- 102.9 BUN/Creatinine Ratio 10.4 (10-20) Calcium Level 9.6 mg/dl (8.5-10.1) Human Chorionic Gonadotropin, Quant 2544 mIU/mL Medications Administered Medications (Trade) Dose Ordered Sig/Marilyn Route Start Time Stop Time Status Last Admin Dose Admin Phenazopyridine HCl (Phenazopyridine HCl 200MG Home Pack) 1 homepack UD ONCE PO 06/20/17 17:45 06/20/17 17:46 DC 06/20/17 17:37 1 HOMEPACK Sodium Chloride 1,000 ml @ 999 mls/hr Q1H1M ONCE IV 06/20/17 18:00 06/20/17 19:01 DC 06/20/17 18:00 999 MLS/HR Sodium Chloride 1,000 ml @ 999 mls/hr Q1H1M ONCE IV 06/20/17 18:00 06/20/17 19:01 DC 06/20/17 18:00 999 MLS/HR ED Course The patient was seen and examined Urinalysis was performed in addition to a bladder scan The patient was reevaluated. She went to the restroom and urinated. A post void residual was noted to be elevated at 350. At this point, I had a conversation with the patient regarding a workup. She was in agreement. Labs were drawn, saline lock was established. Imaging was performed She was hydrated with 2 L normal saline Upon reevaluation, the patient was still complaining of suprapubic pressure. She was able to urinate 450 cc in ultrasound. A post void residual was performed and 58 cc. We discussed the results of her imaging and blood work. She voiced understanding. She was comfortable being discharged home. The patient was discharged home with a jitney driver Medical Decision Differential diagnosis: UTI, pyelonephritis, other urinary retention, ectopic , spontaneous , renal failure, dehydration, cauda equina syndrome, musculoskeletal pain, DVT This patient is a 31-year-old female that presents to the emergency department complaining of urinary retention and dysuria. She has had the symptoms for the last several days. She also complains of mild back pain and pain into the posterior aspect of her thighs. No numbness or tingling into her legs or groin. No bowel incontinence. On exam, she was neurovascularly intact. No signs of cauda equina syndrome. No significant tenderness in the abdomen. A post residual bladder scan was performed and slightly elevated at 350 cc. For this reason, a workup was performed. Her urinalysis is clean. Renal function is intact. There is no leukocytosis. The patient was hydrated with 2 L of normal saline. She was able to void 450 cc. A post residual ultrasound was again performed with 50 cc of urine in the bladder. The etiology of the patient 's symptoms is unclear. The patient's hCG quant is rising. An ultrasound shows a 5.1 cm corpus luteum cyst. A possible gestational sac without a pole or yolk sac was possibly visualized in the uterus. Retroperitoneal/ bladder ultrasound were unremarkable. The patient has a follow-up appointment tomorrow with Dr. Gilmore from urology at 1230. I do not find it necessary to send her home with a Goodman catheter. The case was also discussed with TANK FURNACE OPERATOR. She was encouraged to call the office tomorrow for a follow-up appointment. She voiced understanding. She will continue her current medications as prescribed. She agrees to return with any worsening symptoms. This chart was completed in part utilizing [employer] Speech Voice Recognition software. Attempts were made to minimize the grammatical errors, random word insertions, pronoun errors and incomplete sentences. Any formal questions or concerns about the content, text or information contained within the body of this dictation should be directly addressed to the provider for clarification. Medication Reconcilliation Current Medication List: was personally reviewed by me Blood Pressure Screening Patient's blood pressure: Normal blood pressure Consults Consulting Physician: Dr. Baez Impression Primary Impression: Symptoms of urinary tract infection Departure Information Dispostion Home / Self-Care Condition GOOD Referrals Maynor Aguirre M.D. (PCP) Tom Baez M.D., Christopher T. M.D. Patient Instructions My [facility] Additional Instructions You have been evaluated in the emergency department for pain in your legs and difficulty urinating. Blood work was performed. The hCG level is rising. Kidney function was normal. There are no signs of a UTI. Please follow-up with urology tomorrow as scheduled. Please also call your OB/ ARCHITECTURAL ENGINEERING TEACHER doctor for close follow-up tomorrow. A number has been provided. Please continue Monistat and amoxicillin as prescribed Please do not hesitate to return to the emergency department with any new, worsening or concerning symptoms; especially, numbness, tingling or weakness in your legs, numbness or tingling in your groin, no urination in 12 hours It was a pleasure participating in your care today School Instructions Return To School: 2 days
[2017-06-20] MEDS ORDERED: PHENAZOPYRIDINE HOME PACK 200 MG VIAL PO ONE (17:45)
[2017-06-20] MEDS ORDERED: SODIUM CHLORIDE 0.9% 1000ML 1,000 ML IV ONE ×2 (18:00)
[2017-06-20 18:28] LABS: BASO % 0.3 %; BASO ABS # 0.02 K/uL (0-0.2); EOS % 0.1 %; EOS ABS # 0.01 K/uL (0-0.5); HEMATOCRIT 41.7 % (37-47); HEMOGLOBIN 14.8 g/dL (12.0-16.0); IG# 0.01 K/uL (0.00-0.02); LYMPH % 24.2 %; LYMPH ABS # 1.78 K/uL (1.2-3.4); MEAN CELL VOLUME 87.1 fL (80-100); MEAN CORPUSCULAR HEMOGLOBIN 30.9 pg (25-34); MEAN CORPUSCULAR HGB CONC 35.5 g/dl (32-36); MEAN PLATELET VOLUME 9.8 fL (7.4-10.4); MONO % 5.8 %; MONO ABS # 0.43 K/uL (0.11-0.59); NEUT % 69.5 %; NEUT ABS # 5.12 K/uL (1.4-6.5); PLATELET COUNT 274 K/uL (130-400); RED CELL DISTRIBUTION WIDTH CV 12.3 % (11.5-14.5); RED CELL DISTRIBUTION WIDTH SD 39.4 fL (36.4-46.3); WHITE BLOOD COUNT 7.37 K/uL (4.8-10.8)
[2017-06-20 18:46] LABS: CALCIUM 9.6 mg/dl (8.5-10.1); CREATININE 0.77 mg/dl (0.60-1.20); POTASSIUM 3.2 mmol/L (3.5-5.1)
--- NOTE | 2017-06-20 20:15 | DIAGNOSTIC IMAGING REPORT ---
(RENAL)RETROPERITON COMP HISTORY: 31 years-old Female urinary retention flank pain acute bilateral flank pain with urinary retention COMPARISON: ultrasound of same day, CT 12/17/2013 TECHNIQUE: Multiple real-time sonography images of the kidneys and bladder were obtained assessing grayscale appearance and color flow FINDINGS: The right kidney measures 9.2 x 5.2 x 5.8 cm and is unremarkable without hydronephrosis, renal calculi or suspicious mass lesions. The left kidney measures 10.4 x 5.0 x 6.0 cm and is also within normal limits without renal calculi, hydronephrosis or focal mass lesions. The urinary bladder is unremarkable with bilateral ureteral jets identified. IMPRESSION: Unremarkable sonographic appearance of the bilateral kidneys and urinary bladder without renal calculi or hydronephrosis. The above report was generated using voice recognition software. It may contain grammatical, syntax or spelling errors. Electronically signed by: Amarjit Hanson M.D. 06/20/2017 8:14 PM Dictated Date/Time: 06/20/2017 8:13 PM
[2017-06-20] MEDS ORDERED: PHENAZOPYRIDINE HCL 200 MG TAB PO STA (20:20)
--- NOTE | 2017-06-20 20:21 | DIAGNOSTIC IMAGING REPORT ---
<14 WKS SINGLE HISTORY: 31 years-old Female ? 5 weeks confirmation of . Acute pelvic pain COMPARISON: Renal ultrasound of same day TECHNIQUE: Multiple real-time sonographic images of the deep pelvic structures were obtained transabdominally and transvaginally assessing grayscale appearance, color and spectral flow FINDINGS: TRANSABDOMINAL: Anteflexed uterus measures 9.9 x 3.9 x 4.8 cm and is unremarkable. Endometrium measures 1.3 cm. There is a hypoechoic focus of the fundal endometrium, 0.5 cm. No myometrial mass lesions identified. The right ovary measures 5.1 x 2.8 x 4.7 cm and demonstrates arterial inflow. Hypoechoic structure of the right ovary measures 4.0 x 2.4 x 3.6 cm without central arterial inflow. TRANSVAGINAL: Hypoechoic collection of the fundal endometrium measures 0.6 cm. Septated complex hypoechoic structure of the right ovary measures 5.1 x 2.8 x 4.7 cm with peripheral vascularity. Alternatively, this finding may represent 2 separate cystic foci, largest measuring 3.0 cm. Left ovary measures 3.3 x 1.4 x 3.4 cm and is unremarkable with arterial inflow. Distended bladder is noted with internal debris. IMPRESSION: 1. 0.6 cm hypoechoic collection of the fundal endometrium suggests possible early gestational sac without yolk sac or pole identified. Alternative diagnosis would include a pseudocyst sac with occult ectopic gestation or fluid collection from a missed . Close follow-up with serial quantitative beta hCG analysis and ultrasound imaging is needed. 2. Complex cystic structure of the right ovary measuring up to 5.1 cm suggests corpus luteal cyst. No evidence of ovarian torsion. 3. Unremarkable sonographic appearance of the left ovary. The above report was generated using voice recognition software. It may contain grammatical, syntax or spelling errors. Electronically signed by: Amarjit Hanson M.D. 06/20/2017 8:20 PM Dictated Date/Time: 06/20/2017 8:15 PM
[2017-06-20 21:13] VITALS: BP 135/70; PULSE 81; O2SAT 100
== END 2017-06-20 21:14 | disposition home or self-care (01) ==
LOC: C.EDB 12:37 → C.EDD 21:14
DX: R33.9 Retention of urine, unspecified (principal); R30.0 Dysuria; Z33.1 Pregnant state, incidental; M79.651 Pain in right thigh; M79.652 Pain in left thigh; N80.9 Endometriosis, unspecified

== ENCOUNTER → 2017-06-22 | Outpatient (CLI) | payer OTHER ==
[~2017-06-22] MED LIST changes: +DOCU-94 PO; -MICO2CRE TOP; +POLY335019 PO; +PSYL0.524 PO
== END | disposition home or self-care (01) ==
LOC: C.LAB1850 08:45
PROVIDERS: ATTEND Obstetrics & Gynecology
DX: Z32.00 Encounter for pregnancy test, result unknown (principal)

== ENCOUNTER → 2017-06-24 | Outpatient (CLI) | payer OTHER | END | disposition home or self-care (01) | LOC: C.LAB1850 10:00 | PROVIDERS: ATTEND Obstetrics & Gynecology | DX: Z32.00 Encounter for pregnancy test, result unknown (principal) ==

== ENCOUNTER → 2017-06-26 | Outpatient (CLI) | payer OTHER | END | disposition home or self-care (01) | LOC: C.LAB1850 09:39 | PROVIDERS: ATTEND Obstetrics & Gynecology | DX: Z32.00 Encounter for pregnancy test, result unknown (principal) ==

== ENCOUNTER → 2017-07-03 | Outpatient (CLI) | payer OTHER | END | disposition home or self-care (01) | LOC: C.LAB1850 09:09 | PROVIDERS: ATTEND Obstetrics & Gynecology | DX: Z20.9 Contact with and (suspected) exposure to unspecified communicable disease (principal) ==

== ENCOUNTER 2020-06-15 04:59 | Inpatient (IN) ==
[2020-06-15] MEDS ORDERED: LACTATED RINGER'S 1,000 ML IV SCH ×2 (05:30→08:30)
--- NOTE | 2020-06-15 05:54 | History & Physical Report ---
Date of Service June 15, 2020 Assessment & Plan (1) Previous delivery affecting , antepartum: Admission and Anticipated Discharge Date Admission Date: IUP saran 39+ weeks in early labor scheduled for repeat C/S on 06/16 will proceed with repeat C/S now please see orders Covid testing already completed on 06/10 and is negative. History of Present Illness Primary Care Provider: Bernie Nelson DO Patient is a 34 yo white female EDC 06/18/20 whop presents with regular contractions for several hours. (+) bloody show (-) SPROM. She is scheduled for a repeat on 06/16. Prior was done for breech presentation. otherwise has been uncomplicated. COVID testing done on 06/10/20 was negative. no current COVID symptoms. GBS -positive. Allergies Allergy/AdvReac Type Severity Reaction Status Date / Time levofloxacin AdvReac Intermediate . Verified 06/13/20 15:31 Valtrex Allergy Mild Rash Uncoded 06/13/20 15:31 Home Medications Medication Instructions Recorded Confirmed Type breast pump #1 ea 05/23/20 06/13/20 Rx vit no.[id number] 1 tab PO DAILY 06/13/20 06/13/20 History [ Vitamin] Patient History Medical History Depression GERD without esophagitis History of COVID-19 02/19/2020 [facility] [place] loss of taste and smell, head cold, SOB, fatigue no problems at present HTN (hypertension) no problems at present IBS (irritable bowel syndrome) Shingles hx of x 4 since 2018, last episode was 2018 Surgical History H/O section H/O dilation and curettage H/O laparoscopy (2005) H/O rectal sphincterotomy History of wisdom tooth extraction Family History Grandfather (Paternal) Prostate cancer Grandmother (Paternal) Diabetes Father Diabetes Hypertension Mother Hypertension Cancer Breast cancer Grandfather (Maternal) Stroke Diabetes Aunt No problems noted. 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 Other Information That Helps Us Care for You: No Feels Safe at Home: Yes Safety Concerns: Feels Safe At This Time Dental Care, Regularly: Yes Physical Activity Frequency: Daily Seatbelt Use: always Sunscreen Use: Yes Assistive Devices: Contacts and Glasses Review of Systems All systems reviewed & are unremarkable except as noted in HPI & below Physical Exam Constitutional: WD/WN, vitals as above Respiratory: normal respiratory effort, lungs clear to auscultation Cardiovascular: RRR, no murmur, no edema Gastrointestinal (Abdomen): normal bowel sounds, soft, nontender, no hepatosplenomegaly Psychiatric: A+Ox3, euthymic affect Genitourinary: OB Exam Abdomen: + vertex and + regular contractions (ever 3-5 minutes) Manual OB Exam: + cervical dilation 1 cm, + cervical effacement 100% and + station -2 OB Exam Monitor Tracing: + external FHT monitor used, + external uterine monitor used, + category I and + normal FHT variability Results & Data ([place]) Vital Signs (Past 12 Hours) Vital Signs Resp 06/15/20 05:11 18 Coding Level of Care Code None Diagnoses Previous delivery affecting , antepartum O34.219
[2020-06-15] MEDS ORDERED: CITRIC ACID/SODIUM CITRATE 15 ML UDC PO SCH (06:00)
[2020-06-15] MEDS ORDERED: ceFAZolin 2000MG 2,000 MG/15 ML SYR IV SCH (06:00)
--- NOTE | 2020-06-15 06:04 | Anesthesiology Consultation ---
Date of Service June 15, 2020 Assessment & Plan (1) Encounter for pre-operative examination: Chart Review Chart Review: Acceptable Risk for Surgery and Patient NOT seen in Pre Admission Testing Consults Requested none History Surgery Operation Date: 06/15/20 05:40 Proposed Procedures p Section in LD - Madina Trujillo MD, FACOG Height/Weight Height: 5 ft 4 in Weight: 90.718 kg Allergies Allergy/AdvReac Type Severity Reaction Status Date / Time levofloxacin AdvReac Intermediate . Verified 06/13/20 15:31 Valtrex Allergy Mild Rash Uncoded 06/13/20 15:31 Medications Home Medications Medication Instructions Recorded Confirmed Last Taken breast pump #1 ea 05/23/20 06/13/20 Unknown vit no.[id number] 1 tab PO DAILY 06/13/20 06/13/20 06/13/20 08:00 [ Vitamin] Active Medications Generic Name Dose Route Start Last Admin Trade Name Freq PRN Reason Stop Dose Admin Lactated Ringer's 1,000 mls @ 999 mls/hr 06/15/20 05:30 06/15/20 05:24 Lr IV 06/15/20 06:30 999 mls/hr .Q1H1M GISELE Administration NPO Date Last Intake of Fluids: 06/15/20 Time Last Intake of Fluids: 00:00 Date Last Intake of Solids: 06/14/20 Time Last Intake of Solids: 17:30 Past Medical History Medical History Depression GERD without esophagitis History of COVID-19 02/19/2020 [facility] [place] loss of taste and smell, head cold, SOB, fatigue no problems at present HTN (hypertension) no problems at present IBS (irritable bowel syndrome) Shingles hx of x 4 since 2018, last episode was 2018 Past Family History Family History Grandfather (Paternal) Prostate cancer Grandmother (Paternal) Diabetes Father Diabetes Hypertension Mother Hypertension Cancer Breast cancer Grandfather (Maternal) Stroke Diabetes Aunt No problems noted. Grandmother (Maternal) Breast cancer Heart disease Past Surgical History Surgical History H/O section H/O dilation and curettage H/O laparoscopy (2005) H/O rectal sphincterotomy History of wisdom tooth extraction Social History Smoking Status: Never smoker Hx Alcohol Use: No Hx Substance Use: No substance use type: does not use Physical Exam Vital Signs Last Vital Signs Resp 18 06/15/20 05:11
[2020-06-15 06:11] LABS: Basophils # (auto) 0.01 K/uL (0-0.2); Basophils % (auto) 0.1 %; Hematocrit (blood only) 36.1 % (37-47); Hemoglobin 12.8 g/dL (12.0-16.0); Immature Granulocytes # (auto) 0.02 K/uL (0.00-0.02); Immature Granulocytes % (auto) 0.2 %; Lymphocytes # (auto) 1.42 K/uL (1.2-3.4); Lymphocytes % (auto) 13.2 %; Mean Corpuscular Hemoglobin 30.8 pg (25-34); Mean Platelet Volume 10.2 fL (7.4-10.4); Monocytes # (auto) 0.72 K/uL (0.11-0.59); Monocytes % (auto) 6.7 %; Neutrophils % (auto) 79.8 %; Platelet Count 214 K/uL (130-400); RDW Coefficient of Variation 13.7 % (11.5-14.5); RDW Standard Deviation 43.3 fL (36.4-46.3); Red Blood Count 4.15 M/uL (4.2-5.4); White Blood Count 10.77 K/uL (4.8-10.8)
[2020-06-15 06:23] LABS: Mean Corpuscular Hgb Conc 35.5 g/dL (32-36)
[2020-06-15] MEDS ORDERED: MoRPHine SULFATE PF 1 MG/ML 10 ML AMP/VIAL ONE (06:40)
[2020-06-15] MEDS ORDERED: PHENYLEPHRINE 100MCG/ML 5ML SYR ONE (06:40)
[2020-06-15] MEDS ORDERED: ONDANSETRON INJ 2 MG/ML 2 ML VIAL ONE (06:40)
[2020-06-15] MEDS ORDERED: OXYTOCIN 10 UNITS/ML VIAL ONE (06:40)
[2020-06-15] MEDS ORDERED: fentaNYL citrate 100 MCG/2 ML VIAL ONE (06:40)
[2020-06-15] MEDS ORDERED: MoRPHine SULFATE 2 MG/ML CARP IV PRN (07:17)
[2020-06-15] MEDS ORDERED: NALOXONE HCL 1 MG in SODIUM CHLORIDE 0.9% 1000ML 1,000 ML IV PRN (07:17)
[2020-06-15] MEDS ORDERED: HYDROmorphone INJ 0.5 MG/0.5 ML SYR IV PRN (07:17)
[2020-06-15] MEDS ORDERED: LACTATED RINGER'S 500 ML IV PRN (07:17)
[2020-06-15] MEDS ORDERED: KETOROLAC 30 MG/ML VIAL IV PRN (07:17)
[2020-06-15] MEDS ORDERED: NALOXONE HCL 0.4 MG/1 ML VIAL/CARP IV PRN (07:17)
[2020-06-15] MEDS ORDERED: MoRPHine SULFATE PF 1 MG/ML 10 ML AMP/VIAL INT SPINAL ONE (07:17)
[2020-06-15] MEDS ORDERED: NALOXONE HCL 0.08 MG in SYRINGE 1.8 ML IV PRN (07:17)
[2020-06-15] MEDS ORDERED: ePHEDrine sulfate 50 MG/ML AMP IV PRN (07:17)
[2020-06-15] MEDS ORDERED: diphenhydrAMINE 50 MG/ML VIAL IV PRN (07:17)
[2020-06-15] MEDS ORDERED: ONDANSETRON INJ 2 MG/ML 2 ML VIAL IV PRN (07:17)
[2020-06-15] MEDS ORDERED: DC INTRASPINAL MORPHINE SCH (07:30)
[2020-06-15] MEDS ORDERED: NO NARCOTICS OR SEDATIVES SCH (07:30)
[2020-06-15] MEDS ORDERED: SODIUM CHLORIDE 0.9% 1000ML 1,000 ML IV SCH (07:30)
--- NOTE | 2020-06-15 08:14 | Post Operative Brief Note ---
PG Immediate Post Op with CF Date of Surgery June 15, 2020 Pre & Post Diagnosis Operation Date: 06/15/20 05:40 <No data on this case meets the specified criteria> Pre-op dx- IUP at 39 weeks in labor- previous section Post-op dx- same plus delivery of viable female 8 lbs 12 ozs. apgars 9&9 I identified the patient and participated in the time-out.: Yes Procedure Operation Date: 06/15/20 05:40 <No data on this case meets the specified criteria> repeat LTCS Surgeon Madina Trujillo MD, FACOG Traffic Controller [employer] Umm Kurtz Estimated Blood Loss 500 Findings Consistent with Post-Op Diagnosis Fluids 1 liter LR Specimens Specimen Description: placenta to hold Drains Goodman Catheter (Floey placed in OR, patient tolerated procedure well.) Anesthesia Type Spinal Complications none Disposition Accompanied Patient To Recovery: Yes Disposition: L&D Overlapping Procedure I was immediately available: during the entire case.
[2020-06-15] MEDS ORDERED: SUPERCREAM 0.870% 15 GM JAR EXT PRN (08:25)
[2020-06-15] MEDS ORDERED: DIPHTHERIA/TETANUS/PERTUSSIS 0.5 ML SYR/VIAL IM ONE (08:25)
[2020-06-15] MEDS ORDERED: BENZOCAINE 20% AER SPR 82.5 GM CAN EXT PRN (08:25)
[2020-06-15] MEDS ORDERED: SENNA 8.6 MG TAB PO PRN (08:25)
[2020-06-15] MEDS ORDERED: HYDROCORTISONE ACETATE 25 MG SUPP PR PRN (08:25)
[2020-06-15] MEDS ORDERED: MAGNESIUM HYDROXIDE SUSP 30 ML UDC PO PRN (08:25)
--- NOTE | 2020-06-15 09:39 | Anesthesiology Progress Note ---
Date of Service June 15, 2020 Anesthesia Post Procedure Vital Signs Vital Signs: Pulse Resp BP Pulse Ox 06/15/20 09:34 87 98 06/15/20 09:30 84 126/79 06/15/20 09:29 86 98 06/15/20 09:26 87 91 06/15/20 09:24 86 96 06/15/20 09:20 95 H 131/63 06/15/20 09:19 84 97 06/15/20 09:14 91 H 96 06/15/20 09:11 93 H 162/91 H 06/15/20 09:09 88 98 06/15/20 09:07 88 92 06/15/20 09:04 93 H 98 06/15/20 09:01 95 H 88 L 06/15/20 09:00 81 107/55 L 06/15/20 08:59 92 H 96 06/15/20 08:54 83 97 06/15/20 08:50 85 100/53 L 06/15/20 08:49 88 99 06/15/20 08:44 96 H 99 06/15/20 08:41 93 H 131/62 06/15/20 08:39 85 99 06/15/20 08:36 89 93 06/15/20 08:34 89 98 06/15/20 08:30 85 120/70 06/15/20 08:29 88 98 06/15/20 08:24 81 99 06/15/20 08:19 88 120/73 97 06/15/20 05:11 18 Transfer of Care Handoff Completed per policy Notes Mental Status: alert / awake / arousable and participated in evaluation Patient Amnestic to Procedure: No Nausea / Vomiting: adequately controlled Pain: adequately controlled Airway Patency, RR, SpO2: stable & adequate BP & HR: stable & adequate Hydration State: stable & adequate Neuraxial Anesthesia: was administered and sensory block is resolving Anesthetic Complications: no major complications apparent and Pt Satisfied with anesthetic care
--- NOTE | 2020-06-15 10:49 | Operative Report (OR) ---
DATE OF OPERATION: 06/15/2020 SURGEON: Madina Byrne MD. MORNING NANNY: Dr. Umm Kurtz. PREOPERATIVE DIAGNOSES: Intrauterine at 39 weeks, prior section, in labor, requesting repeat section. POSTOPERATIVE DIAGNOSES: Intrauterine at 39 weeks, prior section, in labor, requesting repeat section plus delivery of a viable female , 8 pounds 12 ounces, Apgars 9 and 9. PROCEDURE: Repeat low transverse section. ANESTHESIA: Subarachnoid block. BLOOD LOSS: 500 mL. HISTORY: The patient is a 34-year-old 2, para 1-0-0-1 white female who presents with regular contractions every 5 minutes for several hours. She was scheduled for a repeat section on 06/16/2020, but because of her presenting in active labor, the decision was made to proceed with a repeat section on admission. The patient and her understand the risks of procedure as well as the procedure itself and all their questions were answered to their satisfaction prior to proceeding with the section. GROSS FINDINGS: Uterus is gravid and consistent with a term in size. Bilateral ovaries and tubes were grossly normal. DESCRIPTION OF PROCEDURE: After the patient received adequate subarachnoid block, she was prepped and draped in usual sterile fashion. A low transverse skin incision was made through her prior scar and carried to the fascia with the same scalpel. The fascial incision was then extended with Rider scissors and the edges were then grasped with Faby clamps and the underlying rectus muscles bluntly and sharply dissected over the overlying fascia. The rectus muscles were then bluntly divided along the midline and the peritoneum also entered bluntly. The rectus muscles were divided on the midline with the scalpel initially and then extended with Metzenbaum scissors. The bladder was then taken down off the anterior surface of the uterus with Metzenbaum scissors and placed behind the bladder blade. The lower uterine segment was entered with the scalpel and extended transversely. Membranes were ruptured for thin meconium-stained fluid. The was delivered from the vertex presentation with moderate fundal pressure and vacuum assistance to gently bring the head through the uterine incision. The rest of the delivered easily and there was vigorous crying and the was moving all 4 limbs. The cord was clamped and cut and the was handed off to Dr. Schaefer who was in attendance as language translator. The placenta was then expressed intact with a 3-vessel cord. The uterus exteriorized and covered with a clean lap sponge. The uterine cavity was explored and found to be free of any retained tissue. The uterus was then closed in 2 layers in a running locking imbricating fashion with 0 Monocryl. Hemostasis was noted to be excellent. The posterior cul-de-sac was suctioned for a small amount of bloody fluid. The anterior cul-de-sac showed there were a few bleeding sites on the bladder flap. This was controlled with the Bovie. The uterus was placed back inside the abdominal cavity. The incision was examined once more and continued to have excellent hemostasis. The anterior cul-de-sac was irrigated with normal saline. The gutters were explored and found to be free of any clot or fluid. The rectus muscles were then brought together on the midline with individual stitches of 0 Monocryl. Fascia was closed in a running fashion with 0 Vicryl. After irrigating the adipose layer, the skin edges were reapproximated using a subcuticular stitch of 4-0 Vicryl. Urine was clear at the end of the case. IV dilute Pitocin was used to control bleeding. The patient tolerated the procedure well and was stable upon arrival back in labor and delivery. I attest to the content of the Intraoperative Record and any orders documented therein. Any exception s are noted below.
[2020-06-15] MEDS: OXYTOCIN 20 UNITS in LACTATED RINGER'S 1,000 ML IV SCH ×2 (12:28→20:31)
[2020-06-15] MEDS: SIMETHICONE 80 MG CHEW PO SCH ×3 (13:02→20:04)
[2020-06-15] MEDS: DOCUSATE SODIUM 100 MG CAP PO SCH (20:04)
[2020-06-16] MEDS ORDERED: ONDANSETRON INJ 2 MG/ML 2 ML VIAL IV PRN (01:18)
[2020-06-16] MEDS ORDERED: PROMETHAZINE HCL 25 MG in SODIUM CHLORIDE 0.9% 50 ML IV PRN (01:18)
[2020-06-16] MEDS ORDERED: MEPERIDINE HCL 50 MG/ML CARP IV PRN (01:18)
[2020-06-16] MEDS ORDERED: diphenhydrAMINE 50 MG/ML VIAL IV PRN (01:18)
[2020-06-16] MEDS ORDERED: diphenhydrAMINE Capsule 25 MG CAP PO PRN (01:18)
[2020-06-16] MEDS: oxyCODONE/ACETAMINOPHEN 5mg/325mg TAB PO PRN ×4 (04:31→16:39)
[2020-06-16] MEDS: IBUPROFEN 600 MG TAB PO PRN ×4 (04:33→16:39)
[2020-06-16 06:29] LABS: Basophils # (auto) 0.01 K/uL (0-0.2); Basophils % (auto) 0.1 %; Eosinophils # (auto) 0.02 K/uL (0-0.5); Eosinophils % (auto) 0.3 %; Hematocrit (blood only) 31.3 % (37-47); Hemoglobin 10.5 g/dL (12.0-16.0); Immature Granulocytes # (auto) 0.01 K/uL (0.00-0.02); Immature Granulocytes % (auto) 0.1 %; Lymphocytes # (auto) 1.15 K/uL (1.2-3.4); Lymphocytes % (auto) 16.5 %; Mean Corpuscular Hgb Conc 33.5 g/dL (32-36); Mean Corpuscular Volume 89.4 fL (80-100); Mean Platelet Volume 9.7 fL (7.4-10.4); Monocytes # (auto) 0.68 K/uL (0.11-0.59); Monocytes % (auto) 9.8 %; Neutrophils # (auto) 5.09 K/uL (1.4-6.5); Neutrophils % (auto) 73.2 %; Platelet Count 172 K/uL (130-400); RDW Coefficient of Variation 14.2 % (11.5-14.5); RDW Standard Deviation 46.1 fL (36.4-46.3); White Blood Count 6.96 K/uL (4.8-10.8)
--- NOTE | 2020-06-16 07:37 | Obstetrical Progress Note ---
Date of Service <Umm Kurtz DO - Last Filed: 06/16/20 07:37> June 16, 2020 Assessment & Plan <Umm Kurtz DO - Last Filed: 06/16/20 07:37> (1) state: POD #1 - PNL: Rh pos, RI, GBS positive, COVID neg - Feels well today. Eating well, voiding well, ambulating well. - Pain well controlled with ibuprofen 600mg Q4H PRN - Routine care -- OOB, ambulation, diet progression as tolerated - After discharge will have 6 week follow-up with Dr. Byrne. Subjective <Umm Kurtz DO - Last Filed: 06/16/20 07:37> Flavia Boss is a 34 y/o female who is POD #1 following repeat delivery at 39 +4 weeks. She reports feeling well overall this morning. Mild abdominal cramping well managed on analgesics. Voiding without dysuria. Tolerating meals overnight without difficulty, nausea, or vomiting. Patient has been able to ambulate some. She is passing gas. Has persistent lochia with some improvement this morning. Currently . Review of Systems Denies fever or chills. Denies shortness of breath or cough. Denies chest pain. Denies breast pain. Denies dysuria. Denies leg pain or leg swelling. Denies headache or changes in vision. Physical Exam <Umm Kurtz DO - Last Filed: 06/16/20 07:37> General: Alert, oriented. No acute distress. Cardiac: Regular rate and rhythm. No murmurs. Respiratory: Clear to auscultation bilaterally a/p, no wheezes/rales/rhonchi. No increased work of breathing. Symmetrical chest rise. No respiratory distress. Abdomen: Soft, nontender, nondistended. Bowel sounds present. Uterus: Uterine fundus firm, palpable at umbilicus. Surgical incision with dressing in place -- dressing is c/d/i. Lower Extremities: No lower extremity edema or swelling. No deep calf pain. Shreya's negative bilaterally. Results & Data ([facility]) <Umm Kurtz DO - Last Filed: 06/16/20 07:37> Vital Signs (Past 12 Hours) Vital Signs Temp Pulse Pulse Resp BP BP Pulse Ox 06/16/20 04:00 36.9 C 89 18 105/73 96 06/16/20 02:00 16 97 06/16/20 01:00 18 96 06/16/20 00:00 16 97 06/15/20 23:00 36.7 C 91 H 16 104/69 96 06/15/20 22:00 18 99 06/15/20 21:00 16 95 06/15/20 20:00 18 97 06/15/20 19:51 37.0 C 97 H 18 105/71 96 Pulse Ox 06/16/20 04:00 06/16/20 02:00 06/16/20 01:00 06/16/20 00:00 06/15/20 23:00 96 06/15/20 22:00 06/15/20 21:00 06/15/20 20:00 06/15/20 19:51 Laboratory Results 06/16/20 Range/Units 06:12 WBC 6.96 (4.8-10.8) K/uL RBC 3.50 L (4.2-5.4) M/uL Hgb 10.5 L (12.0-16.0) g/dL Hct 31.3 L (37-47) % MCV 89.4 (80-100) fL MCH 30.0 (25-34) pg MCHC 33.5 (32-36) g/dL RDW Std Deviation 46.1 (36.4-46.3) fL RDW Coeff of Shawn 14.2 (11.5-14.5) % Plt Count 172 (130-400) K/uL MPV 9.7 (7.4-10.4) fL Immature Gran % (Auto) 0.1 % Neut % (Auto) 73.2 % Lymph % (Auto) 16.5 % Callahan % (Auto) 9.8 % Eos % (Auto) 0.3 % Baso % (Auto) 0.1 % Neut # (Auto) 5.09 (1.4-6.5) K/uL Lymph # (Auto) 1.15 L (1.2-3.4) K/uL Callahan # (Auto) 0.68 H (0.11-0.59) K/uL Eos # (Auto) 0.02 (0-0.5) K/uL Baso # (Auto) 0.01 (0-0.2) K/uL Immature Gran # (Auto) 0.01 (0.00-0.02) K/uL <Renée Wyman MD, FACOG - Last Filed: 06/16/20 07:41> Co-Signing Physician Notes Resident Physician Supervision Note: I was present with Dr. Kurtz during the history and exam. I discussed the case with the resident and agree with the findings and plan as documented in the note. Any exceptions or clarifications are listed here: [None] Documented By: Renée Wyman MD, FACOG Resident Activity Tracking <Umm Kurtz DO - Last Filed: 06/16/20 07:37> Resident Involvement: Resident Care Provided Care Provided: OB Delivery
[2020-06-16] MEDS: DOCUSATE SODIUM 100 MG CAP PO SCH ×2 (08:29→20:23)
[2020-06-16] MEDS: PRENATAL VITAMIN 1 TAB PO SCH (08:29)
[2020-06-16] MEDS: FERROUS SULFATE 325 MG TAB PO SCH (08:29)
[2020-06-16] MEDS: SIMETHICONE 80 MG CHEW PO SCH ×4 (08:29→20:23)
[2020-06-16] MEDS ORDERED: bisacodyL 5 MG TABEC PO SCH (20:00)
[2020-06-17] MEDS: IBUPROFEN 600 MG TAB PO PRN ×2 (01:56→07:52)
[2020-06-17 06:23] LABS: Hematocrit (blood only) 31.2 % (37-47); Hemoglobin 10.4 g/dL (12.0-16.0)
--- NOTE | 2020-06-17 07:03 | Obstetrical Progress Note ---
Date of Service <Umm Kurtz DO - Last Filed: 06/17/20 07:28> June 17, 2020 Assessment & Plan <Umm Kurtz DO - Last Filed: 06/17/20 07:28> (1) state: POD #2 - PNL: Rh pos, RI, GBS positive, COVID neg - Feels well today. Eating well, voiding well, ambulating well. - Pain well controlled with ibuprofen 600mg Q4H prn and Percocet 5-325mg q4h prn - Has had satisfactory routine care -- OOB, ambulation, and diet progression - Discharge instructions discussed in detail with patient. All questions answered. - After discharge will have 6 week follow-up with Dr. Byrne. Subjective <Umm Kurtz DO - Last Filed: 06/17/20 07:28> Flavia Boss is a 34 y/o female who is POD #2 following repeat delivery at 39 +4 weeks. She reports feeling well overall this morning. Mild abdominal cramping and 6/10 pain well managed on analgesics. Voiding without dysuria. Tolerating meals overnight without difficulty, nausea, or vomiting. Patient has been able to ambulate some. She is passing gas but has not yet had a bowel movement. Has persistent lochia with some improvement this morning. Currently . Review of Systems Denies fever or chills. Denies shortness of breath or cough. Denies chest pain. Denies breast pain. Denies dysuria. Denies leg pain or leg swelling. Denies headache or changes in vision. Physical Exam <Umm Kurtz DO - Last Filed: 06/17/20 07:28> General: Alert, oriented. No acute distress. Cardiac: Regular rate and rhythm. No murmurs. Respiratory: Clear to auscultation bilaterally a/p, no wheezes/rales/rhonchi. No increased work of breathing. Symmetrical chest rise. No respiratory distress. Abdomen: Soft, nontender, nondistended. Bowel sounds present. Uterus: Uterine fundus firm, palpable at umbilicus. Surgical scar clean and healing well. Lower Extremities: No lower extremity edema or swelling. No deep calf pain. Shreya's negative bilaterally. Results & Data ([facility]) <Umm Kurtz DO - Last Filed: 06/17/20 07:28> Vital Signs (Past 12 Hours) Vital Signs Temp Pulse Resp BP 06/16/20 23:45 36.6 C 90 18 121/80 06/16/20 20:10 36.7 C 93 H 18 112/72 Laboratory Results 06/17/20 Range/Units 06:00 Hgb 10.4 L (12.0-16.0) g/dL Hct 31.2 L (37-47) % <Susy Jovel MD, FACOG - Last Filed: 06/17/20 07:39> Co-Signing Physician Notes Resident Physician Supervision Note: I was present with Dr. Kurtz during the history and exam. I discussed the case with the resident and agree with the findings and plan as documented in the note. Any exceptions or clarifications are listed here: stable, routine care. f/u 6wk pp check. instructions reviewed. ff 1 down nt, incision c/d/i. pain meds helping, script sent. wants to go home. Documented By: Susy Jovel MD, FACOG Resident Activity Tracking <Umm Kurtz DO - Last Filed: 06/17/20 07:28> Resident Involvement: Resident Care Provided Care Provided: OB Delivery
[2020-06-17] MEDS: PRENATAL VITAMIN 1 TAB PO SCH (07:52)
[2020-06-17] MEDS: oxyCODONE/ACETAMINOPHEN 5mg/325mg TAB PO PRN (07:52)
[2020-06-17] MEDS: SIMETHICONE 80 MG CHEW PO SCH (07:52)
[2020-06-17] MEDS: DOCUSATE SODIUM 100 MG CAP PO SCH (07:52)
[2020-06-17] MEDS: FERROUS SULFATE 325 MG TAB PO SCH (07:52)
[2020-06-17] MEDS ORDERED: bisacodyL 10 MG SUPP PR PRN (08:25)
--- NOTE | 2020-06-21 22:00 | Discharge Summary (DS) ---
PRINCIPAL DIAGNOSES: Intrauterine at 39 weeks, prior section, in labor, requesting repeat section. PRINCIPAL PROCEDURE: Repeat low transverse section. HISTORY OF PRESENT ILLNESS: The patient is a 34-year-old 2, para 1-0-0-1 white female who presented with regular contractions the day before her scheduled repeat section. She was having regular contractions with cervical change. The repeat section was therefore done on 06/15/2020. This was done without complications. She remained afebrile throughout her hospital stay. She was able to ambulate, void and eat regular diet on her 1st postop day without difficulty. Her pain was well controlled with oral medications as well. Hemoglobin on admission was 12.8, hematocrit of 36.1. First postop day hemoglobin 10.5, hematocrit 31.3. Second postop day hemoglobin 10.4, hematocrit 31.2. She was sent home in good condition with prescriptions for ibuprofen 600 mg p.o. q. 6 hours p.r.n. pain, Percocet 1 tablet p.o. q. 6 hours p.r.n. pain. She is to call for temperature of 101 degrees or higher, heavy vaginal bleeding, burning with urination, increased redness, drainage or pain in her incision, calf tenderness or any other concerns. She is to be seen in the office in 6 weeks for her followup visit.
== END 2020-06-17 10:15 | disposition home or self-care (01) | DRG 788 ==
LOC: OPB 04:59 → 4S1 05:05 → 4S2 15:10

== ENCOUNTER 2023-06-08 00:21 | Observation (INO) ==
[2023-06-08 01:00] LABS: Appearance Urine Clear (Clear); Bacteria Urine Automated 1+ (Negative); Bilirubin Urine Negative (Negative); Blood Urine 1+ (Negative); Color Urine Yellow; Epithelial Cell Urine Auto >30 /lpf (0-5); Glucose Urine UA Negative (Negative); Ketones Urine 1+ (Negative); Leukocyte Esterase Urine Negative (Negative); Nitrite Urine Negative (Negative); Protein Urine Negative (Negative); RBC Urine Automated 0-4 /hpf (0-4); Specific Gravity Urine 1.014 (1.000-1.030); Urobilinogen Urine Negative (Negative); pH Urine 5.5 (4.5-7.5)
[2023-06-08 01:03] LABS: Basophils # (auto) 0.02 K/uL (0.00-0.20); Basophils % (auto) 0.2 %; Hematocrit (blood only) 35.1 % (37.0-47.0); Hemoglobin 12.1 g/dl (12.0-16.0); Immature Granulocytes # (auto) 0.05 K/uL (0.01-0.20); Immature Granulocytes % (auto) 0.5 %; Lymphocytes # (auto) 0.88 K/uL (1.20-3.40); Lymphocytes % (auto) 8.2 %; Mean Corpuscular Hemoglobin 30.5 pg (25.0-34.0); Mean Corpuscular Hgb Conc 34.5 g/dL (32.0-36.0); Mean Corpuscular Volume 88.4 fL (80.0-100.0); Mean Platelet Volume 10.1 fL (9.4-12.4); Monocytes # (auto) 0.36 K/uL (0.11-0.59); Monocytes % (auto) 3.4 %; Neutrophils # (auto) 9.36 K/uL (1.40-6.50); Neutrophils % (auto) 87.7 %; Platelet Count 218 K/uL (130-400); RDW Coefficient of Variation 13.2 % (11.5-14.5); RDW Standard Deviation 41.9 fL (36.4-46.3); Red Blood Count 3.97 M/uL (4.20-5.40); White Blood Count 10.67 K/ul (4.8-10.8)
[2023-06-08 01:17] LABS: Pregnancy Test, Serum Positive (Negative)
[2023-06-08 01:20] LABS: Albumin Globulin Ratio 1.3 (0.9-2); Albumin Level 3.9 gm/dl (3.4-5.0); BUN Creatinine Ratio 10.8 (10-20); Bilirubin,Total 0.4 mg/dl (0.2-1.0); Calcium 9.3 mg/dl (8.6-10.3); Creatinine Clr Calc Pharmacy 123.1 ml/min; Est GFR (African American) 131.5 ml/min; Est GFR (Non-African American) 113.4 ml/min; Potassium 3.9 mmol/L (3.5-5.1); Total Protein 6.9 gm/dl (6.0-8.3)
[2023-06-08] MEDS: ONDANSETRON INJ 2 MG/ML 2 ML VIAL IV STA (03:33)
[2023-06-08] MEDS: SODIUM CHLORIDE 0.9% 1,000 ML IV ONE (03:33)
[2023-06-08] MEDS: MoRPHine SULFATE 2 MG/ML CARP IV STA ×2 (03:36→07:48)
--- NOTE | 2023-06-08 03:40 | Emergency Department Note ---
Impression & Plan Hydronephrosis, Second trimester Admit to the [facility] ED Provider Note NAME: MARYANNE BRAR AGE: 37 SEX: Female INFORMANT: Patient ED PROVIDER(S): Marilu Paul DO CHIEF COMPLAINT: Left upper quadrant abdominal pain PLAN: Disposition: Admit to the [facility] MEDICAL DECISION MAKING: This is a 37-year-old female patient G3, P2 with left-sided abdominal pain. Patient was seen here yesterday and underwent a renal and ultrasound which were both fairly unremarkable except for renal pelviectasis. Pain was treated at that time with IV morphine. Patient was discharged home and felt okay until tonight when the pain returned and became more severe. Upon presentation, the patient appeared quite uncomfortable and was given repeat dose of IV morphine and Zofran along with fluids as she was vomiting. Patient had hematuria and ultrasound now shows left-sided hydronephrosis. There is no leukocytosis or anemia. Renal function tests were normal. She required additional doses of IV acetaminophen and IV morphine. I discussed the case with [facility] OB and the patient will be admitted to the [facility]. Care/management discussed with: Dr. Wyman-OB Dr. Fernandez-[facility] Triage Nursing notes: Reviewed and agree with them. Vital Signs: reviewed and remarkable for hypertension Chronic Medical/Social Conditions affecting care: Second trimester Prior/ Outside/ External records reviewed: I reviewed yesterday's renal ultrasound and OB ultrasound Differential Diagnosis: Obstructive uropathy, ureteral colic, gastritis Diagnostics, independently interpreted by me: Imaging studies: Renal ultrasound HPI: 37 year old Female arrives for evaluation of left upper quadrant abdominal pain. Patient developed left-sided/left upper quadrant abdominal pain yesterday for which she was seen here in the emergency department. She underwent a significant workup at that time which included a renal ultrasound and OB ultrasound. OB ultrasound was normal. Renal ultrasound showed no hydronephrosis but there was renal pelviectasis. PAST MEDICAL HISTORY: G3, P2, PAST SURGICAL HISTORY: See Below, SOCIAL HISTORY: See Below, HOME MEDICATIONS: See list ALLERGIES: See list VITALS: See Below PHYSICAL EXAMINATION: HEENT: Head - normocephalic and atraumatic Pupils are equal, round, and reactive to light. Extraocular eye muscles are intact, and sclera are anicteric. Nose - moist nasal mucosa without discharge. Mouth - moist buccal mucosa. Oropharynx is nonerythematous and there is no tonsillar exudate or edema noted. Neck: Supple; no cervical lymphadenopathy or thyromegaly Heart: Regular rate and rhythm. There is a normal S1 and S2 with no murmurs, clicks, or gallops appreciated. Lungs: Clear to auscultation bilaterally with no wheezes, rales, or rhonchi. Abdomen: Soft, gravid, mild tenderness to palpation in the left upper quadrant. Extremities: No evidence of cyanosis, clubbing, or edema. There are easily palpable peripheral pulses. Skin: Pale, warm and diaphoretic with good turgor and no rashes. Emergency department treatment: IV normal saline, IV morphine, IV Zofran, IV acetaminophen, IV morphine Emergency department course: The patient was evaluated in room B-3. A complete history and physical was performed. Previous electronic medical records were reviewed. An IV lock was initiated and labs were drawn as above. Urine specimen was obtained. Patient was given a dose of IV morphine and IV Zofran. She went for renal ultrasound. Upon returning, the patient remained uncomfortable and was given a dose of IV acetaminophen. She was able to rest for short period of time but the pain returned and woke her up. She was then given another dose of IV morphine. I discussed the case with the [facility] wool tamper. I then discussed the case with the [facility] Hospitalist. Past Med/Surg History Medical History History of COVID-19 (02/2020) Shingles IBS (irritable bowel syndrome) Depression GERD without esophagitis HTN (hypertension) Surgical History Previous delivery affecting , antepartum H/O laparoscopy (2005) H/O section H/O dilation and curettage H/O rectal sphincterotomy History of wisdom tooth extraction Family History Grandfather (Paternal) Prostate cancer Grandmother (Paternal) Diabetes Father Diabetes Hypertension Mother Hypertension Cancer Breast cancer Grandfather (Maternal) Stroke Diabetes Aunt No problems noted. Grandmother (Maternal) Breast cancer Heart disease Social History (Updated 02/20/23 @ 14:11 by Medina Pabon) Smoking Status: Never smoker Second Hand Exposure: No; Do You Dip or Chew Tobacco: No; Hx Alcohol Use: Yes Alcohol Intake Frequency: Monthly or Less Alcohol Intake Frequency Comment: social Hx Substance Use: No Preferred Language: Erit[place] Communication Ability: Effective Visual Impairment: Limited Hearing Ability: Normal Coat Room Attendant Required: No Beliefs That Will Affect Care: None marital status: marital status details: [place] (43yo)- [phone] Current Living Situation: Spouse Current Living Situation Comment: Pt mother-Spouse and 2 children- Son 5 dtr 3 yo current occupational status: employed 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, [employer] Feels Safe at Home: Yes Childhood Exposure to Second-Hand Smoke: Yes Diet: regular caffeine: Yes during the past year weight has: remained stable Dental Care, Regularly: Yes Physical Activity Frequency: Daily Seatbelt Use: always Sunscreen Use: Yes Assistive Devices: Glasses Allergies Allergies Allergy/AdvReac Type Severity Reaction Status Date / Time levofloxacin AdvReac Intermediate tendonitis Verified 05/21/23 08:44 Valtrex Allergy Mild Rash Uncoded 05/21/23 08:44 Home Meds Home Medications Medication Instructions Recorded Confirmed cholecalciferol (vitamin D3) 25 25 mcg PO DAILY 06/06/23 06/08/23 mcg (1,000 unit) chewable tablet (Vitamin D3) vitamins no.159-iron 1 tab PO DAILY 06/06/23 06/08/23 fumarate 28 mg-folic acid 800 mcg tablet ( Vitamin) Results & Data (ED) Vital Signs Vital Signs - 24 hr 06/08/23 00:31 06/08/23 02:32 06/08/23 04:00 Temperature 36.8 C Temperature Source Temporal Artery Scan Pulse Rate 102 H 109 H Pulse Rate [Apical] 94 H Pulse Rate from SpO2 Sensor Respiratory Rate 20 19 Respiratory Effort / Characteristics Non-Labored Spontaneous Respiratory Depth Normal Respiratory Pattern Regular Blood Pressure 129/94 Blood Pressure [Right Arm] 161/121 H Blood Pressure Mean 105 Blood Pressure Mean [Right Arm] 134 Blood Pressure Position [Right Arm] Pulse Oximetry 98 97 Oxygen Delivery Method Room Air Room Air Sepsis Recent Fever Within 48 Hours No Sepsis New/Unexplained Change in Mental Status No Sepsis Action Taken by Nursing No Action Required 06/08/23 04:01 06/08/23 05:30 06/08/23 06:32 Temperature Temperature Source Pulse Rate 95 H 81 Pulse Rate [Apical] 72 Pulse Rate from SpO2 Sensor 99 H Respiratory Rate 14 18 16 Respiratory Effort / Characteristics Respiratory Depth Respiratory Pattern Blood Pressure Blood Pressure [Right Arm] 149/82 H Blood Pressure Mean Blood Pressure Mean [Right Arm] 104 Blood Pressure Position [Right Arm] Lying Pulse Oximetry 100 98 Oxygen Delivery Method Room Air Room Air Sepsis Recent Fever Within 48 Hours Sepsis New/Unexplained Change in Mental Status Sepsis Action Taken by Nursing 06/08/23 07:00 06/08/23 07:30 Temperature Temperature Source Pulse Rate 75 72 Pulse Rate [Apical] Pulse Rate from SpO2 Sensor 75 71 Respiratory Rate 20 13 Respiratory Effort / Characteristics Respiratory Depth Respiratory Pattern Blood Pressure 140/87 134/103 H Blood Pressure [Right Arm] Blood Pressure Mean 104 113 Blood Pressure Mean [Right Arm] Blood Pressure Position [Right Arm] Pulse Oximetry 99 99 Oxygen Delivery Method Room Air Room Air Sepsis Recent Fever Within 48 Hours Sepsis New/Unexplained Change in Mental Status Sepsis Action Taken by Nursing Laboratory Data 06/08/23 00:45 06/08/23 00:45 Lab Results 06/08/23 Range/Units 00:45 WBC 10.67 (4.8-10.8) K/ul RBC 3.97 L (4.20-5.40) M/uL Hgb 12.1 (12.0-16.0) g/dl Hct 35.1 L (37.0-47.0) % MCV 88.4 (80.0-100.0) fL MCH 30.5 (25.0-34.0) pg MCHC 34.5 (32.0-36.0) g/dL RDW Std Deviation 41.9 (36.4-46.3) fL RDW Coeff of Shawn 13.2 (11.5-14.5) % Plt Count 218 (130-400) K/uL MPV 10.1 (9.4-12.4) fL Immature Gran % (Auto) 0.5 % Neut % (Auto) 87.7 % Lymph % (Auto) 8.2 % Nance % (Auto) 3.4 % Eos % (Auto) 0.0 % Baso % (Auto) 0.2 % Neut # (Auto) 9.36 H (1.40-6.50) K/uL Lymph # (Auto) 0.88 L (1.20-3.40) K/uL Nance # (Auto) 0.36 (0.11-0.59) K/uL Eos # (Auto) 0.00 (0.00-0.50) K/uL Baso # (Auto) 0.02 (0.00-0.20) K/uL Immature Gran # (Auto) 0.05 (0.01-0.20) K/uL Sodium 135 L (136-145) mmol/L Potassium 3.9 (3.5-5.1) mmol/L Chloride 105 (98-107) mmol/L Carbon Dioxide 20 L (21-32) mmol/L Anion Gap 10 (3-11) BUN 7 (6-23) mg/dl Creatinine 0.65 (0.6-1.2) mg/dl Est Cr Clr Drug Dosing 123.1 ml/min Est GFR ( Amer) 131.5 ml/min Est GFR (Non-Af Amer) 113.4 ml/min BUN/Creatinine Ratio 10.8 (10-20) Glucose 98 (70-99(Fasting)) mg/dl Calcium 9.3 (8.6-10.3) mg/dl Total Bilirubin 0.4 (0.2-1.0) mg/dl AST 16 (13-39) U/L ALT 14 (7-52) U/L Alkaline Phosphatase 46 (34-104) U/L Total Protein 6.9 (6.0-8.3) gm/dl Albumin 3.9 (3.4-5.0) gm/dl Globulin 3.0 (2.5-4.0) gm/dl Albumin/Globulin Ratio 1.3 (0.9-2) Lipase 15 (11-82) U/L HCG, Qual Positive (Negative) Urine Color Yellow Urine Appearance Clear (Clear) Urine pH 5.5 (4.5-7.5) Ur Specific Menard 1.014 (1.000-1.030) Urine Protein Negative (Negative) Urine Glucose (UA) Negative (Negative) Urine Ketones 1+ H (Negative) Urine Blood 1+ H (Negative) Urine Nitrite Negative (Negative) Urine Bilirubin Negative (Negative) Urine Urobilinogen Negative (Negative) Ur Leukocyte Esterase Negative (Negative) Urine WBC (Auto) 5-10 H (0-5) /hpf Urine RBC (Auto) 0-4 (0-4) /hpf U Hyaline Cast (Auto) 1-5 (0-5) /lpf U Epithel Cells (Auto) >30 H (0-5) /lpf Urine Bacteria (Auto) 1+ H (Negative) Administered Medications Sodium Chloride (Nss) 500 mls @ 80 mls/hr IV .Q6H15M GISELE Stop: 07/08/23 07:14 Last Infusion: 06/08/23 12:00 Dose: 80 mls/hr Documented By: Admin: 06/08/23 11:52 Dose: 125 mls/hr Documented By: Infusion: 06/08/23 11:20 Dose: Infused Documented By: Admin: 06/08/23 07:20 Dose: 125 mls/hr Documented By: PAULINA Morphine Sulfate (Morphine Sulfate 2 Mg/Ml Carp) 2 mg IV Q3H PRN PRN Reason: Pain Stop: 06/22/23 10:49 Last Admin: 06/08/23 16:20 Dose: 2 mg Documented By: Admin: 06/08/23 11:31 Dose: 2 mg Documented By: RANDI Prenat Multivit/K[place]/Iron/Folic Ac ( Vitamin 1 Tab) 1 tab PO DAILY GISELE Stop: 07/08/23 10:59 Last Admin: 06/08/23 11:53 Dose: 1 tab Documented By: RANDI Vitamin D (Cholecalciferol 25 Mcg (1000 Units) Tab) 25 mcg PO DAILY GISELE Stop: 07/08/23 10:59 Last Admin: 06/08/23 11:53 Dose: 25 mcg Documented By: RANDI Discontinued Medications Sodium Chloride (Nss) 1,000 mls @ 999 mls/hr IV .Q1H1M ONE Stop: 06/08/23 04:24 Last Infusion: 06/08/23 04:35 Dose: Infused Documented By: Admin: 06/08/23 03:33 Dose: 999 mls/hr Documented By: Acetaminophen (Ofirmev) 1,000 mg in 100 mls @ 400 mls/hr IV NOW STA Stop: 06/08/23 05:34 Last Infusion: 06/08/23 06:10 Dose: Infused Documented By: Admin: 06/08/23 05:30 Dose: 400 mls/hr Documented By: Morphine Sulfate (Morphine Sulfate 2 Mg/Ml Carp) 2 mg IV NOW STA Stop: 06/08/23 03:25 Last Admin: 06/08/23 03:36 Dose: 2 mg Documented By: Morphine Sulfate (Morphine Sulfate 2 Mg/Ml Carp) 2 mg IV NOW STA Stop: 06/08/23 07:36 Last Admin: 06/08/23 07:48 Dose: 2 mg Documented By: PAULINA Ondansetron HCl (Ondansetron Inj 2 Mg/Ml 2 Ml Vial) 4 mg IV NOW STA Stop: 06/08/23 03:25 Last Admin: 06/08/23 03:33 Dose: 4 mg Documented By: Imaging Data Radiologist's Impression: Renal Ultrasound 06/08/23 03:24 Exam(s): US RENAL EXAM: US Retroperitoneal Limited, Renal CLINICAL HISTORY: Reason for exam: eval left for stone - 24 weeks preg. TECHNIQUE: Real-time limited ultrasound of the retroperitoneum with image documentation. COMPARISON: No relevant prior studies available. FINDINGS: Right kidney: There is mild right hydronephrosis. Right kidney measures 10 cm in length. No stones. Left kidney: There is mild left hydronephrosis. Left kidney measures 12.2 cm in length. No stones. Urinary bladder: Right ureteric jet is seen. Left ureteric jet is not visualized. IMPRESSION: Bilateral hydronephrosis Electronically signed by: Cristian Espinoza MD 06/08/23 06:35 AM Discharge Plan Visit Data Chief Complaint: Abdominal Pain Stated Complaint: ABD PAIN, VOMITING, 22 WKS ED Provider: Marilu Paul Discharge Problem: Hydronephrosis, Second trimester Patient Disposition: Admitted As Inpatient Discharge Instructions Interventions: ED Discharge Assessment Last Done: 06/08/23 10:30
[2023-06-08] MEDS: ACETAMINOPHEN 1,000 MG/100 ML VIAL IV STA (05:30)
--- NOTE | 2023-06-08 06:35 | Ultrasound Report ---
Exam(s): US RENAL EXAM: US Retroperitoneal Limited, Renal CLINICAL HISTORY: Reason for exam: eval left for stone - 24 weeks preg. TECHNIQUE: Real-time limited ultrasound of the retroperitoneum with image documentation. COMPARISON: No relevant prior studies available. FINDINGS: Right kidney: There is mild right hydronephrosis. Right kidney measures 10 cm in length. No stones. Left kidney: There is mild left hydronephrosis. Left kidney measures 12.2 cm in length. No stones. Urinary bladder: Right ureteric jet is seen. Left ureteric jet is not visualized. IMPRESSION: Bilateral hydronephrosis Electronically signed by: Cristian Espinoza MD 06/08/23 06:35 AM
[2023-06-08] MEDS: SODIUM CHLORIDE 0.9% 500 ML IV SCH (07:20)
--- NOTE | 2023-06-08 08:04 | History & Physical Report ---
Date of Service June 08, 2023 Assessment & Plan (1) Ureteral colic: Plan: Left-sided. IV fluids. Pain control measures. Consult urology (2) Hydronephrosis: Plan: Mild. Seen on renal ultrasound. Creatinine is normal. No obstruction. Will follow (3) Microscopic hematuria: Plan: Seen on urine analysis. No gross hematuria. Suspected due to ureteral calculus (4) 23 weeks gestation of : Plan: Obstetrical ULTRASOUND completed June 05. Unremarkable. OB consult requested Plan Hopeful discharge to home soon History of Present Illness Chief Complaint: Left flank pain Primary Care Provider: Maynor Aguirre 37-year-old white female with 24-week gestation. She initially presented to the ED on June 05 with left flank pain due to suspected ureteral colic. She was treated in the ED and released. She subsequently returned with recurrent abdominal discomfort. Renal ultrasound at this time reveals evidence of mild bilateral hydronephrosis without obstructing stone. Urine analysis reveals microscopic hematuria. She has received intravenous morphine for pain control measures and is on IV fluids. She will be placed in observation with consultations to urology and obstetrics. Allergies Allergy/AdvReac Type Severity Reaction Status Date / Time levofloxacin AdvReac Intermediate tendonitis Verified 05/21/23 08:44 Valtrex Allergy Mild Rash Uncoded 05/21/23 08:44 Home Medications Medication Instructions Recorded Confirmed Type cholecalciferol (vitamin D3) 25 25 mcg PO DAILY 06/06/23 06/08/23 History mcg (1,000 unit) chewable tablet (Vitamin D3) vitamins no.159-iron 1 tab PO DAILY 06/06/23 06/08/23 History fumarate 28 mg-folic acid 800 mcg tablet ( Vitamin) Past Med/Surg History Medical History History of COVID-19 (02/2020) Shingles IBS (irritable bowel syndrome) Depression GERD without esophagitis HTN (hypertension) Surgical History Previous delivery affecting , antepartum H/O laparoscopy (2005) H/O section H/O dilation and curettage H/O rectal sphincterotomy History of wisdom tooth extraction Family History Grandfather (Paternal) Prostate cancer Grandmother (Paternal) Diabetes Father Diabetes Hypertension Mother Hypertension Cancer Breast cancer Grandfather (Maternal) Stroke Diabetes Aunt No problems noted. Grandmother (Maternal) Breast cancer Heart disease Social History (Updated 02/20/23 @ 14:11 by Medina Pabon) Smoking Status: Never smoker Second Hand Exposure: No; Do You Dip or Chew Tobacco: No; Hx Alcohol Use: Yes Alcohol Intake Frequency: Monthly or Less Alcohol Intake Frequency Comment: social Hx Substance Use: No Preferred Language: [place] Communication Ability: Effective Visual Impairment: Limited Hearing Ability: Normal Non Destructive Testing Engineer Required: No Beliefs That Will Affect Care: None marital status: marital status details: [place] (43yo)- [phone] Current Living Situation: Spouse and Family Current Living Situation Comment: lives w/ spouse and son, and daughter ,dogs current occupational status: employed 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 Left flank discomfort -no urinary retention, no urinary incontinence, no dysuria, no gross hematuria Musculoskeletal-no joint pain, no muscle tenderness Skin-no bruising, no rashes, no pruritus Neuro-no isolated weakness, no paresthesia Psych-no depression, no anxiety Physical Exam 2 Physical Exam: General-alert and oriented x3, no fever, no chills HEENT-head atraumatic and normocephalic, pupils equal and reactive to light, extraocular muscles intact Neck-no lymphadenopathy or thyromegaly, trachea midline Chest-clear to auscultation percussion. No rales wheezing or rhonchi Cardiac-regular rate and rhythm, normal S1 and S2, no murmurs Abdomen-normal bowel sounds, no hepatosplenomegaly. Distended due to underlying . Left flank tenderness to palpation Extremities-no cyanosis, clubbing, or edema Neuro-cranial nerves II through XII intact, motor and sensory function within normal limits, strength symmetrical , no focal deficits Psych-normal affect, normal mood Results & Data Results & Data Vital Signs (Past 12 Hours) Vital Signs Temp Pulse Pulse Resp BP BP Pulse Ox 06/08/23 07:53 82 06/08/23 07:30 72 13 134/103 H 99 06/08/23 07:00 75 20 140/87 99 06/08/23 06:32 72 16 149/82 H 98 06/08/23 05:30 81 18 06/08/23 04:01 95 H 14 100 06/08/23 04:00 109 H 06/08/23 02:32 94 H 19 161/121 H 97 06/08/23 00:31 36.8 C 102 H 20 129/94 98 O2 Del Method 06/08/23 07:53 06/08/23 07:30 Room Air 06/08/23 07:00 Room Air 06/08/23 06:32 Room Air 06/08/23 05:30 06/08/23 04:01 Room Air 06/08/23 04:00 06/08/23 02:32 Room Air 06/08/23 00:31 Room Air Laboratory Results 06/08/23 00:45 06/08/23 00:45 Code Status & VTE Plan Code Status Full code PG Care Time/CCT Total # of Minutes Spent Total Time Spent with Patient: Total time spent is greater than 50% in coordination of care (as documented) at patient's floor/unit and/or counseling patient: Coding Level of Care Code 81832 INT INP/OBS CARE 3/75MIN Diagnoses Ureteral colic N23 Hydronephrosis N13.30 Microscopic hematuria R31.29 23 weeks gestation of Z3A.23
--- NOTE | 2023-06-08 09:31 | Urology Consultation ---
Date of Consultation June 08, 2023 Assessment & Plan (1) Hydronephrosis: (2) 23 weeks gestation of : (3) Left sided abdominal pain: Plan 37-year-old female was 24 weeks who is admitted with left flank pain and mild bilateral hydronephrosis seen on renal ultrasound. I had a long conversation with her and her about her ultrasound findings. I explained that it is impossible to know based on ultrasound if her hydronephrosis is from compression of the ureters by her uterus or if she has an obstructing stone. Given her whole clinical picture I think it is physiologic hydronephrosis and not a kidney stone. I explained that renal ultrasound is not a good modality for stones As she is afebrile, and has no concerning signs for infection, would recommend symptomatic pain control and no further intervention Discussed plan if pain cannot be controlled. If not feeling better tomorrow would recommend noncontrast CT scan of the abdomen and pelvis to evaluate for kidney stone. Discussed radiation risks with the fetus but think that radiation is minimal and reasonable to perform if not improving. Remainder of care per primary team Urology to follow Patient can have a diet from a urologic perspective Discussed that if her CT scan showed a stone, would likely require transfer for any intervention given that she is 24 weeks and we do not have a NICU at our facility if she were to have premature labor History of Present Illness History of Present Illness 37-year-old female who is 24 weeks gestation. She has previously had issues with left flank pain and a previous renal ultrasound from 06/06/2023 showed mild left pelviectasis. This has previously been seen on CT scans with no obvious obstructing cause. Labs at the time of her initial presentation showed a white blood cell count of 8.1, creatinine of 0.57 and a urinalysis that was negative for nitrites, negative for leukocyte Estrace, 5-10 RBCs and 1+ bacteria. She was discharged home. She presents today with the same issues white blood cell count is 10.6, creatinine is 0.65 urinalysis was negative for nitrites, negative for leukocyte Estrace, 5-10 WBCs, 0-4 RBCs and 1+ bacteria. Previous urine culture is pinpoint growth centers were incubating and another culture is pending. She has not been given antibiotics this hospitalization. Independently reviewed an ultrasound from today which shows mild bilateral hydronephrosis. Patient is afebrile with stable vitals currently with was previously tachycardic when she arrived. She has had 2 previous pregnancies. No history of nephrolithiasis. She reports left lower quadrant pain. Slightly improved since being admitted. Allergies Allergy/AdvReac Type Severity Reaction Status Date / Time levofloxacin AdvReac Intermediate tendonitis Verified 05/21/23 08:44 Valtrex Allergy Mild Rash Uncoded 05/21/23 08:44 Home Medications Medication Instructions Recorded Confirmed Type cholecalciferol (vitamin D3) 25 25 mcg PO DAILY 06/06/23 06/08/23 History mcg (1,000 unit) chewable tablet (Vitamin D3) vitamins no.159-iron 1 tab PO DAILY 06/06/23 06/08/23 History fumarate 28 mg-folic acid 800 mcg tablet ( Vitamin) Patient History Medical History History of COVID-19 (02/2020) Shingles IBS (irritable bowel syndrome) Depression GERD without esophagitis HTN (hypertension) Surgical History Previous delivery affecting , antepartum H/O laparoscopy (2005) H/O section H/O dilation and curettage H/O rectal sphincterotomy History of wisdom tooth extraction Family History Grandfather (Paternal) Prostate cancer Grandmother (Paternal) Diabetes Father Diabetes Hypertension Mother Hypertension Cancer Breast cancer Grandfather (Maternal) Stroke Diabetes Aunt No problems noted. 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 Required: No Beliefs That Will Affect Care: None marital status: marital status details: Mayco (43yo)- [phone] Current Living Situation: Spouse and Family Current Living Situation Comment: lives w/ spouse and son, and daughter ,dogs current occupational status: employed 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, [employer] Feels Safe at Home: Yes Childhood Exposure to Second-Hand Smoke: Yes Diet: regular caffeine: Yes during the past year weight has: remained stable Dental Care, Regularly: Yes Physical Activity Frequency: Daily Seatbelt Use: always Sunscreen Use: Yes Assistive Devices: None Review of Systems Review of Systems: 14 point review of systems negative outs jodi of what is listed above in HPI Physical Exam Physical Exam: General: Alert and oriented, no acute distress HEENT: Normocephalic, mucous membranes moist Pulmonary: Nonlabored respirations Abdomen: Nondistended Extremities: Moves all 4 spontaneously Neuro: No gross deficits Skin: Warm, dry, no rashes noted Results & Data Vital Signs (Past 12 Hours) Vital Signs Temp Pulse Pulse Resp BP BP Pulse Ox 06/08/23 07:53 82 06/08/23 07:30 72 13 134/103 H 99 06/08/23 07:00 75 20 140/87 99 06/08/23 06:32 72 16 149/82 H 98 06/08/23 05:30 81 18 06/08/23 04:01 95 H 14 100 06/08/23 04:00 109 H 06/08/23 02:32 94 H 19 161/121 H 97 06/08/23 00:31 36.8 C 102 H 20 129/94 98 O2 Del Method 06/08/23 07:53 06/08/23 07:30 Room Air 06/08/23 07:00 Room Air 06/08/23 06:32 Room Air 06/08/23 05:30 06/08/23 04:01 Room Air 06/08/23 04:00 06/08/23 02:32 Room Air 06/08/23 00:31 Room Air PG Care Time/CCT Total # of Minutes Spent Total Time Spent with Patient: Total time spent is greater than 50% in coordination of care (as documented) at patient's floor/unit and/or counseling patient: Coding Level of Care Code 93724 IN/OBS CONSULT LVL 3,45M Diagnoses Hydronephrosis N13.30 23 weeks gestation of Z3A.23 Left sided abdominal pain R10.9
[2023-06-08] MEDS ORDERED: ONDANSETRON INJ 2 MG/ML 2 ML VIAL IV PRN (10:50)
[2023-06-08] MEDS ORDERED: ACETAMINOPHEN 325 MG TAB PO PRN (10:50)
[2023-06-08] MEDS: MoRPHine SULFATE 2 MG/ML CARP IV PRN (11:31)
[2023-06-08] MEDS: PRENATAL VITAMIN 1 TAB PO SCH (11:53)
[2023-06-08] MEDS: CHOLECALCIFEROL 25 MCG (1000 UNITS) TAB PO SCH (11:53)
--- NOTE | 2023-06-08 12:58 | OB/GYN Consultation ---
Date of Consultation June 08, 2023 Assessment & Plan (1) Ureteral colic: (2) 23 weeks gestation of : has been uncomplicated up to this point. She has had 2 previous sections for delivery of her other 2 children however I do not feel that her pain is an obstetric source. Because her pain is now moved to the lateral abdominal wall area I suspect that it is a stone and it is moving. Her flank is no longer painful like it was on admission. CT scan with IV contrast is acceptable at this point particularly if it is helpful in making the diagnosis. I am thankful for urology's input and we will continue to follow along during her admission. History of Present Illness Reason for Consultation: ureteral colic 23 weeks gestation Attending Physician: Dashawn Fernandez MD History of Present Illness Patient is a 37-year-old 3 para 2-0-0-2 female EDC of 10/08/2023. Who presented at 22-4/7 weeks with left upper quadrant and flank pain. She was seen initially 3 days ago in the emergency room for this pain. Pulmonary labs were all reassuring. She denies any cramping bleeding or change in vaginal discharge. She has had no fever or chills. Her first evaluation emergency room she received a dose of morphine which stopped her pain completely. Her pain reoccurred in the flank area last evening and was accompanied by nausea and vomiting. She was only comfortable while ambulating- she was most uncomfortable while lying flat.. Palpation of the painful area did not reproduce the pain. She denies any obvious blood in her urine. The pain tends to have a crescendo and decrescendo type pattern. Renal ultrasounds done 3 days ago and again last evening revealed no obvious stone but there is bilateral hydronephrosis. She is still having active movement. NST done while I was in the room was reassuring for 22-4/7 weeks. No contractions were noted on the monitor. Pain meds are helping her discomfort and now she points to a discrete area on her left lateral anterior abdominal wall approximately midway between the umbilicus and her symphysis. It feels better to apply pressure to the area. She denies any GI symptoms of diarrhea or constipation. Her nausea has resolved at this time. Flavia has no history of kidney stones in the past, however, her grandmother had multiple kidney stones. Allergies Allergy/AdvReac Type Severity Reaction Status Date / Time levofloxacin AdvReac Intermediate tendonitis Verified 05/21/23 08:44 Valtrex Allergy Mild Rash Uncoded 05/21/23 08:44 Home Medications Medication Instructions Recorded Confirmed Type cholecalciferol (vitamin D3) 25 25 mcg PO DAILY 06/06/23 06/08/23 History mcg (1,000 unit) chewable tablet (Vitamin D3) vitamins no.159-iron 1 tab PO DAILY 06/06/23 06/08/23 History fumarate 28 mg-folic acid 800 mcg tablet ( Vitamin) Patient History Medical History History of COVID-19 (02/2020) Shingles IBS (irritable bowel syndrome) Depression GERD without esophagitis HTN (hypertension) Surgical History Previous delivery affecting , antepartum H/O laparoscopy (2005) H/O section H/O dilation and curettage H/O rectal sphincterotomy History of wisdom tooth extraction Family History Grandfather (Paternal) Prostate cancer Grandmother (Paternal) Diabetes Father Diabetes Hypertension Mother Hypertension Cancer Breast cancer Grandfather (Maternal) Stroke Diabetes Aunt No problems noted. Grandmother (Maternal) Breast cancer Heart disease Social History (Updated 02/20/23 @ 14:11 by Medina Pabon) Smoking Status: Never smoker Second Hand Exposure: No; Do You Dip or Chew Tobacco: No; Hx Alcohol Use: Yes Alcohol Intake Frequency: Monthly or Less Alcohol Intake Frequency Comment: social Hx Substance Use: No Preferred Language: Slovenian Communication Ability: Effective Visual Impairment: Limited Hearing Ability: Normal Security Strategist Required: No Beliefs That Will Affect Care: None marital status: marital status details: Mayco (43yo)- [phone] Current Living Situation: Spouse and Family Current Living Situation Comment: lives w/ spouse and son, and daughter ,dogs current occupational status: employed 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, [employer] Feels Safe at Home: Yes Childhood Exposure to Second-Hand Smoke: Yes Diet: regular caffeine: Yes during the past year weight has: remained stable Dental Care, Regularly: Yes Physical Activity Frequency: Daily Seatbelt Use: always Sunscreen Use: Yes Assistive Devices: None Review of Systems Review of Systems: All systems reviewed & are unremarkable except as noted in HPI & below Physical Exam Constitutional: WD/WN, vitals as above Psychiatric: A+Ox3, euthymic affect Genitourinary: OB Exam Abdomen: no irregular contractions OB Exam Monitor Tracing: + category I and + normal FHT variability abdomen is soft and nontender to palpation including the area where she is most painful. Results & Data Vital Signs (Past 12 Hours) Vital Signs Temp Pulse Pulse Pulse Resp BP BP 06/08/23 10:52 98.2 F 73 17 145/91 H 06/08/23 10:09 74 12 147/91 H 06/08/23 08:30 75 15 129/97 06/08/23 08:00 77 22 126/93 06/08/23 07:53 82 06/08/23 07:30 72 13 134/103 H 06/08/23 07:00 75 20 140/87 06/08/23 06:32 72 16 06/08/23 05:30 81 18 06/08/23 04:01 95 H 14 06/08/23 04:00 109 H 06/08/23 02:32 94 H 19 BP Pulse Ox O2 Del Method 06/08/23 10:52 96 Room Air 06/08/23 10:09 98 06/08/23 08:30 96 Room Air 06/08/23 08:00 98 06/08/23 07:53 06/08/23 07:30 99 Room Air 06/08/23 07:00 99 Room Air 06/08/23 06:32 149/82 H 98 Room Air 06/08/23 05:30 06/08/23 04:01 100 Room Air 06/08/23 04:00 06/08/23 02:32 161/121 H 97 Room Air PG Care Time/CCT Total # of Minutes Spent Total Time Spent with Patient: Total time spent is greater than 50% in coordination of care (as documented) at patient's floor/unit and/or counseling patient: Coding Level of Care Code 73472 IN/OBS CONSULT LVL 3,45M Diagnoses Ureteral colic N23 23 weeks gestation of Z3A.23
[2023-06-08] MEDS: SODIUM CHLORIDE 0.9% 1,000 ML IV SCH (20:18)
--- NOTE | 2023-06-09 09:00 | Urology Progress Note ---
Date of Service June 09, 2023 Assessment & Plan (1) Second trimester : (2) Hydronephrosis: Plan 37-year-old female was 24 weeks who is admitted with left flank pain and mild bilateral hydronephrosis seen on renal ultrasound. Her pain is markedly improved today so I would recommend no further intervention. We likely will not know if this is physiologic hydronephrosis or stone unless she obviously passes something. I do not think she warrants a CT scan at this time Stable from a urologic perspective to go home. Defer to OB and internal medicine for rest of care I can see her in follow-up in clinic after her delivery to discuss if she wants any sort of imaging to assess for kidney stones at that time Did discuss that if this pain persists and she would return it is probably reasonable to get a CT scan of the abdomen pelvis without contrast at that time Admission and Anticipated Discharge Date Admission Date: June 08, 2023 Subjective No acute issues overnight. Pain markedly improved. Patient in much better spirits today. Review of Systems Review of Systems: 14 point review of systems negative outs jodi of what is listed above in HPI Physical Exam Physical Exam: General: Alert and oriented, no acute distress HEENT: Normocephalic, mucous membranes moist Pulmonary: Nonlabored respirations Abdomen: Consistent with 24-week Extremities: Moves all 4 spontaneously Neuro: No gross deficits Skin: Warm, dry, no rashes noted Results & Data Vital Signs (Past 12 Hours) Vital Signs Temp Pulse Resp BP Pulse Ox O2 Del Method 06/09/23 07:27 36.8 C 89 14 102/67 96 Room Air PG Care Time/CCT Total # of Minutes Spent Total Time Spent with Patient: Total time spent is greater than 50% in coordination of care (as documented) at patient's floor/unit and/or counseling patient: Coding Level of Care Code 02840 SUB INP/OBS CARE 2/35MIN Diagnoses Second trimester Z34.92 Hydronephrosis N13.30
--- NOTE | 2023-06-09 09:03 | Obstetrical Progress Note ---
Date of Service June 09, 2023 Assessment & Plan (1) Ureteral colic: Plan: Based on the patient's history and hospital course, I suspect she passed a ureteral stone this morning. she will continue to strain her urine to retrieve the stone if possible urine culture was no growth - so no need for antibiotic coverage at this time continue daily monitoring until discharge Admission and Anticipated Discharge Date Admission Date: June 08, 2023 Subjective She had an episode of intense pain this morning about 4am in the left suprapubic area which has since resolved. Now she has no pain at all. Nausea has now resolved and has been able to eat and drink better. Still feeling good movement. FHT tracing is reassuring this morning. Review of Systems Review of Systems: All systems reviewed & are unremarkable except as noted in HPI & below Physical Exam Constitutional: WD/WN, vitals as above Psychiatric: A+Ox3, euthymic affect Results & Data Vital Signs (Past 12 Hours) Vital Signs Temp Pulse Resp BP Pulse Ox O2 Del Method 06/09/23 07:27 98.2 F 89 14 102/67 96 Room Air PG Care Time/CCT Total # of Minutes Spent Total Time Spent with Patient: Total time spent is greater than 50% in coordination of care (as documented) at patient's floor/unit and/or counseling patient: Coding Level of Care Code 94812 SUB INP/OBS CARE 2/35MIN Diagnoses Ureteral colic N23
--- NOTE | 2023-06-09 11:29 | Discharge Summary ---
Date of Service June 09, 2023 Admission HPI Per Admitting Provider 37-year-old white female with 24-week gestation. She initially presented to the ED on June 05 with left flank pain due to suspected ureteral colic. She was treated in the ED and released. She subsequently returned with recurrent abdominal discomfort. Renal ultrasound at this time reveals evidence of mild bilateral hydronephrosis without obstructing stone. Urine analysis reveals microscopic hematuria. She has received intravenous morphine for pain control measures and is on IV fluids. She will be placed in observation with consultations to urology and obstetrics. Principal Diagnosis Left flank pain suspected from ureteral colic/ureteral calculus Discharge Exam General-alert and oriented x3, no fever, no chills HEENT-head atraumatic and normocephalic, pupils equal and reactive to light, extraocular muscles intact Neck-no lymphadenopathy or thyromegaly, trachea midline Chest-clear to auscultation percussion. No rales wheezing or rhonchi Cardiac-regular rate and rhythm, normal S1 and S2, no murmurs Abdomen-normal bowel sounds, no hepatosplenomegaly. Distended due to underlying . Left flank tenderness to palpation Extremities-no cyanosis, clubbing, or edema Neuro-cranial nerves II through XII intact, motor and sensory function within normal limits, strength symmetrical , no focal deficits Psych-normal affect, normal mood Discharge Data Allergies Allergy/AdvReac Type Severity Reaction Status Date / Time levofloxacin AdvReac Intermediate tendonitis Verified 05/21/23 08:44 Valtrex Allergy Mild Rash Uncoded 05/21/23 08:44 Consultations 06/08/23 07:34 ED Decision to Admit Stat 06/08/23 07:56 Consult Obstetrics Routine Consult Urology Routine Ordered Studies 06/08/23 03:24 renal/blad retro comp Stat Hospital Course (1) Ureteral colic: Left-sided on admission. She is now symptom-free. Urology consultation appreciated. She will be discharged home today. A few oxycodone 5 mg tablets will be provided to use as needed if her pain recurs. (2) Hydronephrosis: Mild. Bilateral. Creatinine is normal. No obstruction. Probably compressive from her . (3) Microscopic hematuria: Seen on urine analysis. No gross hematuria. Suspected due to ureteral calculus (4) 23 weeks gestation of : Obstetrical ULTRASOUND completed June 05. Unremarkable. OB consult appreciated. nonstress test completed todayJune 08 with normal results. Plan Home todayJune 08 Total Time Total Time Spent Total Time Spent (In Minutes): 45 minutes Discharge Plan Discharge Items Patient Disposition: Home - Self-Care Reason For Visit: flank pain Discharge Diagnosis: Left flank pain of suspected ureter calculus/colic etiology. Bilateral compressive hydronephrosis from Activity: Resume your previous activity Non-emergency contact: Primary Care Provider and Developer Support Engineer Call non-emergency contact if: your symptoms worsen Follow-up/Referrals: Maynor Aguirre [Primary Care Provider] - Diet: Regular Addtl Attending Provider Instructions: Take oxycodone as needed for any recurrent pain. Follow-up with swine genetics researcher as scheduled Pending Studies at Discharge: No Stand-Alone Forms: My [employer], Smoking Cessation Medications and DC Order Prescriptions: New oxycodone 5 mg tablet 5 mg PO Q6H PRN (Reason: pain) Qty: 14 0RF Continued cholecalciferol (vitamin D3) [Vitamin D3] 25 mcg (1,000 unit) Tablet,Chewable 25 mcg PO DAILY Vitamin 28 mg iron- 800 mcg Tablet 1 tab PO DAILY Discharge Orders: Discharge Order (Routine); Ordered 06/09/23 Ordered By: Dashawn Fernandez Admission Data Admit Date/Time: 06/08/23 07:51 Attending Provider: Dashawn Fernandez Admit Provider: Dashawn Fernandez Primary Care Provider: Maynor Aguirre Other Providers: Madina Trujillo; Renée Wyman; Leann Whitt; Susy Jovel; Rufina Gregory; Ghassan Upton; Yanni Johnson; Tam Perez; Estephania Beltran; Kate Chaparro; Steve Betts; Shankar Dickerson; Alf Alonso; Blayne Gilmore; Kaylee Mcmahon; Mario Hartmann; Abigail Middleton; Steffi Gonzales; Keegan Najera; Zaida Souza; Cristian Jane; Prabhjot Alex; Joselo Garcia; Dashawn Fernandez. Coding Level of Care Code 05006 INP/OBS DISCH >30 MIN Diagnoses Ureteral colic N23 Hydronephrosis N13.30 Microscopic hematuria R31.29 23 weeks gestation of Z3A.23
== END 2023-06-09 12:42 | disposition home or self-care (01) ==
LOC: ED 00:21 → EDINP 00:21 → 3W 08:08

== ENCOUNTER 2023-10-01 19:37 | Inpatient (IN) ==
--- NOTE | 2023-10-01 19:54 | History & Physical Report ---
Date of Service October 01, 2023 Assessment & Plan (1) 39 weeks gestation of : (2) Previous delivery affecting , antepartum: Plan iup at 39 weeks, in early labor, breathing through contractions. Was planned for c/s this coming Saturday but will do now. Also desires TL. she is sure. knows not reversible and other options. The risks of surgery were discussed with the patient including the risks of anesthesia, bleeding requiring transfusion, infection, poor wound healing, urinary retention, damage to surrounding structures including bowels, bladder, vessels, nerves and ureters that may require further surgery, hospitalization or intervention. The other risks of any surgery were discussed including heart attack, blood clots, stroke or . Also discussed injury to the baby. Consent reviewed and signed. History of Present Illness Chief Complaint: contractions Primary Care Provider: Maynor Bendersmith Louis is a 37yowf with iup at 39 0/7 weeks who presents to labor and delivery with worsening contractions. Called Dr. Byrne this am and was starting to have contractions. Has had all day but recently increased in intensity and now every 4 or so minutes. Breathing through them. Some blood tinged mucous noted. and Delivery Plans AMA Weekly NST's @ 36 weeks Prior x2 * C/S sheduled 10/07/23 with Caty and rachel to assist Also with tubal GBS Positive *Treat in labor Pap cytology normal/HPV+ *rpt pap 1 year OB Labs: Blood Type O Positive 02/27/23 Antibody Screen NEGATIVE 02/27/23 Hemoglobin 11.5 g/dl (12.0-16.0) L 07/15/23 Hematocrit 34.2 % (37.0-47.0) L 07/15/23 Mean Corpuscular Volume 88.4 fL (80.0-100.0) 06/08/23 Platelet Count 218 K/uL (130-400) 06/08/23 Rubella IgG Antibody Immune (Immune) 02/27/23 Rapid Plasma Reagin Nonreactive (Nonreactive) 02/27/23 Hepatitis B Surface Antigen Neg (Neg) 11/12/19 Hepatitis B Surface Antigen. NON-REACTIVE (NON-REACTIVE) 02/27/23 Hepatitis C Antibody (EIA) NON-REACTIVE (NON-REACTIVE) 02/27/23 HIV (1&2) Ab and P24 Ag, 4th Gener Neg (Neg) 11/12/19 HIV (1&2) Ag and Ab Confirmation NON-REACTIVE (NON-REACTIVE) 02/27/23 Glucose 1 Hour 50 gm Load 120 mg/dl (70-130) 07/15/23 OB Optional Labs: Chlamydia trachomatis RNA Not Detected (NotDetected) 02/27/23 Neisseria gonorrhoeae RNA Not Detected (NotDetected) 02/27/23 Zika Virus 07/03/17 Labs Reviewed: cfdna-low risk--mln GBS positive--akh Allergies Allergy/AdvReac Type Severity Reaction Status Date / Time levofloxacin AdvReac Intermediate tendonitis Verified 10/01/23 13:54 Valtrex Allergy Mild Rash Uncoded 10/01/23 13:54 Home Medications Medication Instructions Recorded Confirmed Type cholecalciferol (vitamin D3) 25 25 mcg PO DAILY 06/06/23 10/01/23 History mcg (1,000 unit) chewable tablet (Vitamin D3) vitamins no.159-iron 1 tab PO DAILY 06/06/23 10/01/23 History fumarate 28 mg-folic acid 800 mcg tablet ( Vitamin) Patient History Medical History (Updated 10/01/23 @ 20:02 by Leann Whitt MD, FACOG) 39 weeks gestation of Depression GERD (gastroesophageal reflux disease) IBS (irritable bowel syndrome) Hx of renal calculi (06/2023) History of COVID-19 (02/2020) 02/19/2020 [facility] in [place] loss of taste and smell, head cold, SOB, fatigue no problems at present Shingles hx of x 4 since 2017, last episode was 2018 HTN (hypertension) no problems at present Surgical History H/O laparoscopy (2005) H/O section x 2 (2017, 2020) H/O dilation and curettage H/O rectal sphincterotomy History of wisdom tooth extraction Family History Grandfather (Paternal) Prostate cancer Grandmother (Paternal) Diabetes Father Diabetes Hypertension Mother Hypertension Cancer Breast cancer Grandfather (Maternal) Stroke Diabetes Aunt No problems noted. 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 Date GA wks Lbr Lgth wt Sex Type del Anes Place Del Prov ? Comment 02/18/18 39 7lbs, 13oz M C-Secti on Epidural [facility] Dr. Byrne 06/15/20 39 8LB 12.3OZ F C-Secti on Spinal [facility] Dr. Byrne No repeat STOCK TRADER History noncontributory Physical Exam Constitutional: WD/WN, vitals as above Gastrointestinal (Abdomen): soft, gravid, nt Psychiatric: A+Ox3, euthymic affect Genitourinary: cx--1-2/90/-2 efm--150s with mod variability, accels to 180s, no decels toco--q3-4min Results & Data Vital Signs (Past 12 Hours) Vital Signs Pulse BP 10/01/23 19:42 106 H 145/90 H Coding Level of Care Code None Diagnoses 39 weeks gestation of Z3A.39 Previous delivery affecting , antepartum O34.219
[2023-10-01] MEDS ORDERED: NALOXONE HCL 1 MG in SODIUM CHLORIDE 0.9% 1,000 ML IV PRN (19:58)
[2023-10-01] MEDS ORDERED: diphenhydrAMINE 50 MG/ML VIAL IV PRN (19:58)
[2023-10-01] MEDS ORDERED: ONDANSETRON INJ 2 MG/ML 2 ML VIAL IV PRN (19:58)
[2023-10-01] MEDS ORDERED: NALOXONE HCL 0.08 MG in SYRINGE 1.8 ML IV PRN (19:58)
[2023-10-01] MEDS ORDERED: HYDROmorphone INJ 0.5 MG/0.5 ML SYR IV PRN (19:58)
[2023-10-01] MEDS ORDERED: LACTATED RINGER'S 500 ML IV PRN (19:58)
[2023-10-01] MEDS ORDERED: PROMETHAZINE HCL 6.25 MG in SODIUM CHLORIDE 0.9% 50 ML IV PRN (19:58)
[2023-10-01] MEDS ORDERED: MoRPHine SULFATE 2 MG/ML CARP IV PRN (19:58)
[2023-10-01] MEDS ORDERED: MoRPHine SULFATE PF 1 MG/ML 10 ML AMP/VIAL INT SPINAL ONE (19:58)
[2023-10-01] MEDS ORDERED: KETOROLAC 30 MG/ML VIAL IV PRN (19:58)
[2023-10-01] MEDS ORDERED: ePHEDrine sulfate 50 MG/ML AMP IV PRN (19:58)
[2023-10-01] MEDS ORDERED: NALBUPHINE HCL 5 MG in SYRINGE 0 ML IV PRN (19:58)
[2023-10-01] MEDS ORDERED: NALOXONE HCL 0.4 MG/1 ML VIAL/CARP IV PRN (19:58)
--- NOTE | 2023-10-01 19:58 | Anesthesiology Consultation ---
Date of Service October 01, 2023 Assessment & Plan ASA ASA2E Proposed Anesthesia Anesthesia Type: Spinal Risk / Benefits Reviewed With: PT / POA / Parent / Guardian, Accepts Plan and Informed Consent Obtained Additional Comments: pt repeat csection who came in laboring History Height/Weight Height: 5 ft 4 in Weight: 91.626 kg Allergies Allergy/AdvReac Type Severity Reaction Status Date / Time levofloxacin AdvReac Intermediate tendonitis Verified 10/01/23 13:54 Valtrex Allergy Mild Rash Uncoded 10/01/23 13:54 Medications Home Medications Medication Instructions Recorded Confirmed Last Taken cholecalciferol (vitamin D3) 25 25 mcg PO DAILY 06/06/23 10/01/23 10/01/23 mcg (1,000 unit) chewable tablet (Vitamin D3) vitamins no.159-iron 1 tab PO DAILY 06/06/23 10/01/23 10/01/23 fumarate 28 mg-folic acid 800 mcg tablet ( Vitamin) Past Medical History Medical History Depression GERD (gastroesophageal reflux disease) IBS (irritable bowel syndrome) Hx of renal calculi (06/2023) History of COVID-19 (02/2020) 02/19/2020 [facility] in [place] loss of taste and smell, head cold, SOB, fatigue no problems at present Shingles hx of x 4 since 2017, last episode was 2018 HTN (hypertension) no problems at present Exercise / Class Metabolic Activity II 4-5 Yardwork/Stairs/Walk up hill Past Family History Family History Grandfather (Paternal) Prostate cancer Grandmother (Paternal) Diabetes Father Diabetes Hypertension Mother Hypertension Cancer Breast cancer Grandfather (Maternal) Stroke Diabetes Aunt No problems noted. Grandmother (Maternal) Breast cancer Heart disease Past Surgical History Surgical History H/O laparoscopy (2005) H/O section x 2 (2020) H/O dilation and curettage H/O rectal sphincterotomy History of wisdom tooth extraction Past Anesthesia History No Hx of Anesthesia Complications and No Family Hx of Anesthesia Complications History of PONV No Hx of PONV and No Hx of Motion Sickness Social History Smoking Status: Never smoker Do You Dip or Chew Tobacco: No Hx Alcohol Use: No Hx Substance Use: No substance use type: does not use Review of Systems denies fever/cough/ colds/ chest pain/ SOB/ MARIUSZ denies MARIUSZ Physical Exam Vital Signs Last Vital Signs Temp 36.8 C 10/01/23 19:44 Pulse 106 H 10/01/23 19:42 Resp 18 10/01/23 19:44 BP 145/90 H 10/01/23 19:42 ENMT Mouth: no TMJ abnormality and no dentition abnormality Thyromental Distance: > or= 3.5 Finger Breadths Mallampati Class: II Neck neck extension not limited Respiratory normal respiratory effort; no respiratory distress Auscultation: lungs clear to auscultation bilaterally Cardiovascular Rate/Rhythm: regular rate and regular rhythm Neurologic moves all extremities Psychiatric Orientation: alert and oriented x 3
[2023-10-01] MEDS ORDERED: SODIUM CHLORIDE 0.9% 1,000 ML IV SCH (20:00)
[2023-10-01] MEDS ORDERED: LACTATED RINGER'S 1,000 ML IV SCH ×2 (20:00→21:55)
[2023-10-01] MEDS ORDERED: CITRIC ACID/SODIUM CITRATE 15 ML UDC PO SCH (20:00)
[2023-10-01] MEDS ORDERED: ceFAZolin 2000MG 2,000 MG/15 ML SYR IV SCH (20:00)
[2023-10-01] MEDS ORDERED: DC INTRASPINAL MORPHINE SCH (20:00)
[2023-10-01] MEDS ORDERED: NO NARCOTICS OR SEDATIVES SCH (20:00)
[2023-10-01] MEDS: LACTATED RINGER'S 1,000 ML IV SCH (20:02)
[2023-10-01] MEDS ORDERED: OXYTOCIN 10 UNITS/ML VIAL ONE (20:11)
[2023-10-01] MEDS ORDERED: fentaNYL citrate PF 100 MCG/2 ML VIAL ONE (20:11)
[2023-10-01] MEDS ORDERED: MoRPHine SULFATE PF 1 MG/ML 10 ML AMP/VIAL ONE (20:11)
[2023-10-01] MEDS: ACETAMINOPHEN 500 MG TAB PO ONE (20:25)
[2023-10-01] MEDS: PENICILLIN GK 6 MU in DEXTROSE 5% 250 ML IV ONE (20:26)
[2023-10-01 20:36] LABS: Basophils # (auto) 0.02 K/uL (0.00-0.20); Basophils % (auto) 0.3 %; Hematocrit (blood only) 36.2 % (37.0-47.0); Hemoglobin 12.2 g/dl (12.0-16.0); Immature Granulocytes # (auto) 0.03 K/uL (0.01-0.20); Immature Granulocytes % (auto) 0.4 %; Lymphocytes # (auto) 1.29 K/uL (1.20-3.40); Lymphocytes % (auto) 16.5 %; Mean Corpuscular Hemoglobin 29.8 pg (25.0-34.0); Mean Corpuscular Hgb Conc 33.7 g/dL (32.0-36.0); Mean Corpuscular Volume 88.3 fL (80.0-100.0); Mean Platelet Volume 10.3 fL (9.4-12.4); Monocytes # (auto) 0.54 K/uL (0.11-0.59); Monocytes % (auto) 6.9 %; Neutrophils # (auto) 5.93 K/uL (1.40-6.50); Neutrophils % (auto) 75.9 %; Platelet Count 188 K/uL (130-400); RDW Coefficient of Variation 14.4 % (11.5-14.5); RDW Standard Deviation 46.1 fL (36.4-46.3); White Blood Count 7.81 K/ul (4.8-10.8)
[2023-10-01] MEDS ORDERED: KETOROLAC 30 MG/ML VIAL ONE (21:12)
[2023-10-01] MEDS ORDERED: ONDANSETRON INJ 2 MG/ML 2 ML VIAL ONE (21:12)
[2023-10-01] MEDS ORDERED: PHENYLEPHRINE 100MCG/ML 10ML SYR IV ONE (21:24)
--- NOTE | 2023-10-01 21:54 | Operative Report ---
PG Post Operative Report Pre & Post Diagnosis Operation Date: 10/01/23 20:45 Pre-Op Diagnosis: 1. at 39.0 weeks 2. Repeat section 3. Desires sterilization 4. Early labor Post-Op Diagnosis: 1. Same as preop I identified the patient and participated in the time-out.: Yes Procedure Operation Date: 10/01/23 20:45 Actual Procedures pRepeat lower transverse Section in LD Bilateral salpingectomy - Leann Whitt MD, FACOG Surgeon Leann Whitt MD, FACOG Last Inserter DR. Jose Jovel Estimated Blood Loss 291 Findings Consistent with Post-Op Diagnosis uterus with a thin but intact rayshawn, nl ovaries and tubes bilaterally viable male infant, cephalic, nuchal x 1 thin meconium stained fluid Fluids 1000cc [id number] clear Specimens bilateral tubes Drains davis Anesthesia Type Spinal Complications none Disposition Accompanied Patient To Recovery: Yes Disposition: L&D Indications patient is a 37yowf with iup at 39 weeks and hx of c/s x 2 who presents to in active labor. Desires sterilization. Description of Procedure The patient was taken to the operating room where she was identified verbally and by bracelet. She was seated on the operating table where a spinal anes thetic was placed by anesthesia. She was then placed in the supine position with a leftward tilt. A Davis catheter was placed sterilely. during placement of the davis , meconium stained mucous was noted. the patient was prepped and draped in a normal standard fashion. the anesthetic was tested and found to be adequate. A time-out was held, identifying correct patient, procedure, positioning and preoperative antibiotics. There were no concerns. A Pfannenstiel skin incision was made with a knife and taken down to the underlying layer of fascia with the knife and Bovie electrocautery. Bleeding was attended to with the Bovie. The fascia was incised in the midline with the knife and taken out laterally with scissors. The superior edge of the fascial incision was grasped, elevated and the underlying layer of rectus muscle was taken off bluntly and with scissors. In a similar fashion, the inferior edge of the fascial incision was grasped, elevated and the underlying layer of rectus muscle was taken off bluntly and with scissors. The muscles were bluntly in the midline. The peritoneum was entered sharply with a knife. The incision was then stretched. The bladder blade was placed. The vesicouterine peritoneum was identified, entered with scissors and taken out laterally with scissors. The bladder flap was created digitally A hysterotomy incision was scored with a knife and the incision was stretched superiorly and inferiorly with the mud mixer operator's fingers. The operators hand was placed into the incision and the head was delivered atraumatically. Nuchal cord x 1. The nose and mouth were bulb suctioned. the rest of the infant was then delivered without difficulty. The nose and mouth were again bulb suctioned. The baby was vigorous. The cord was clamped and cut and the was then handed off to the awaiting sound designer for drying and attention. Cord blood and segment were obtained. The placenta was Manually extracted. The uterus was exteriorized and cleared of all clot and debris with moistened laparotomy sponges. The hysterotomy incision was repaired in one layers, a running locked layer. Hemostasis was noted to be good. Posterior cul-de-sac was irrigated and cleared of all clot and debris. A bilateral salpingetomy was then performed first on the right and then on the left using the ligasure. Hemostasis was good. The hysterotomy incision was again inspected and found to be hemostatic. the uterus was reinteriorized. Hysterotomy incision was again inspected and found to be hemostatic. The fascia was then reapproximated with 0 Vicryl starting at the edges and meeting in the midline. The subcuticular tissues were copiously irrigated and bleeding was attended to with cautery. The skin was then closed with 4-0 Vicryl in a subcuticular fashion. All sponge, lap and needle counts were correct x 2. The patient was taken to the recovery room in stable condition. I attest to the content of the Intraoperative Record and any orders documented therein. Any exceptions are noted below. OB Procedure Charges 33670 Add on Tubal for C/S
[2023-10-01] MEDS ORDERED: HYDROCORTISONE ACETATE 25 MG SUPP PR PRN (21:55)
[2023-10-01] MEDS ORDERED: SENNA 8.6 MG TAB PO PRN (21:55)
[2023-10-01] MEDS ORDERED: BENZOCAINE 20% SPRY 85 APPLN/85 GM CAN EXT PRN (21:55)
[2023-10-01] MEDS ORDERED: MAGNESIUM HYDROXIDE SUSP 30 ML UDC PO PRN (21:55)
[2023-10-01] MEDS ORDERED: OXYTOCIN 20 UNITS/1002ML LR IV ONE (22:00)
[2023-10-01] MEDS: OXYTOCIN 20 UNITS/LR 1,002 ML IV SCH (22:01)
--- NOTE | 2023-10-01 22:08 | Anesthesiology Progress Note ---
Date of Service October 01, 2023 Anesthesia Post Procedure Vital Signs Vital Signs: Temp Pulse Resp BP Pulse Ox 10/01/23 22:04 87 100 10/01/23 22:00 89 116/68 10/01/23 21:59 91 H 100 10/01/23 21:56 87 113/65 10/01/23 21:54 83 99 10/01/23 21:49 90 99 10/01/23 21:48 91 H 92 10/01/23 21:45 89 112/55 L 10/01/23 21:44 83 100 10/01/23 21:40 92 H 119/62 10/01/23 21:39 102 H 100 10/01/23 19:44 36.8 C 18 10/01/23 19:42 106 H 145/90 H Transfer of Care Handoff Completed per policy Notes Mental Status: alert / awake / arousable and participated in evaluation Patient Amnestic to Procedure: Yes Nausea / Vomiting: adequately controlled Pain: adequately controlled Airway Patency, RR, SpO2: stable & adequate BP & HR: stable & adequate Hydration State: stable & adequate Anesthetic Complications: no major complications apparent and Pt Satisfied with anesthetic care
[2023-10-02] MEDS ORDERED: CITRIC ACID/SODIUM CITRATE 15 ML UDC PO SCH ×2 (06:00)
[2023-10-02] MEDS ORDERED: ceFAZolin 2000MG 2,000 MG/15 ML SYR IV SCH (06:00)
--- NOTE | 2023-10-02 06:59 | Obstetrical Progress Note ---
Date of Service <Max Jc MD - Last Filed: 10/02/23 07:10> October 02, 2023 Assessment & Plan <Max Jc MD - Last Filed: 10/02/23 07:10> (1) S/P section: Plan 37y/o , s/p elective C-sec @ 39Wk, PPD 1. She is GBS +and she received pcn. PPD 1: stable, routine management -Patient on Davis and not ambulating at the moment -Pain is well controlled on as needed analgesia -Tolerating yogurt and fluids without nausea or vomiting -Planned to both Breast + Bottle feed * Encouraged to ambulate as tolerated. * Davis cath to be removed 6 hours after C-sec. * Reassess d/c readiness tomorrow * 6 weeks OB outpatient follow-up <Leann Whitt MD, FACOG - Last Filed: 10/02/23 07:11> (1) S/P section: Day #:: 0 Subjective <Max Jc MD - Last Filed: 10/02/23 07:10> Ambulation: limited ambulation Voiding: davis catheter in place Diet Tolerance:: regular diet (managing yogurt) Lochia:: Moderate Feeding Type:: breast feeding (+ Bottle , both) Pt is a 37 y/o female who is now PPD#1 following an elective C-sec at 39 weeks. Reports feeling well overall this morning. minimal abdominal cramping and 1/10 pain, well managed on analgesics. On Davis. Tolerating yogurt and fluids and not ambulating. passing gas but no bowel movements. Some persistent lochia with overall improvement as of this morning. She is both Breast and bottle feeding. Review of Systems -Denies fever or chills -Denies dyspnea, chest pain, or palpitations -Denies breast pain -Denies dysuria -Denies headache or changes in vision Physical Exam <Max Jc MD - Last Filed: 10/02/23 07:10> General: Alert and oriented. No acute distress Cardiac: Regular rate and rhythm, no murmurs appreciated Respiratory: Lungs clear to auscultation bilaterally, No increased work of carmelo thing Abdominal: Soft, appropriately tender over surgical site, bandage intact, no fresh bleeds. Bowel sounds present. Uterus: Uterine fundus firm, palpable below umbilicus Extremities: No lower extremity edema, calves non-tender bilaterally, SCDs in place. Results & Data <Max Jc MD - Last Filed: 10/02/23 07:10> Vital Signs (Past 12 Hours) Vital Signs Temp Pulse Resp BP BP Pulse Ox O2 Del Method 10/02/23 05:11 18 97 10/02/23 04:40 18 97 10/02/23 03:40 18 97 10/02/23 02:40 18 97 10/02/23 01:40 36.4 C L 18 108/72 96 10/02/23 00:40 18 95 10/02/23 00:40 36.9 C 18 117/74 95 Room Air 10/01/23 23:44 91 H 97 10/01/23 23:41 89 116/64 10/01/23 23:40 18 10/01/23 23:39 94 H 97 10/01/23 23:34 99 H 96 10/01/23 23:31 101 H 128/81 10/01/23 23:29 101 H 97 10/01/23 23:24 94 H 97 10/01/23 23:21 91 H 126/83 10/01/23 23:19 105 H 96 10/01/23 23:14 97 H 97 10/01/23 23:11 98 H 116/65 10/01/23 23:10 18 10/01/23 23:09 103 H 97 10/01/23 23:04 96 H 98 10/01/23 23:01 93 H 117/65 10/01/23 22:59 88 97 10/01/23 22:54 93 H 98 10/01/23 22:51 92 H 122/75 10/01/23 22:49 96 H 97 10/01/23 22:44 94 H 97 10/01/23 22:41 93 H 119/78 10/01/23 22:40 18 10/01/23 22:39 93 H 98 10/01/23 22:34 94 H 98 10/01/23 22:31 108 H 138/65 10/01/23 22:30 18 10/01/23 22:29 95 H 99 10/01/23 22:26 88 156/63 H 10/01/23 22:25 107 H 146/113 H 10/01/23 22:24 87 99 10/01/23 22:22 90 209/72 H 10/01/23 22:21 96 H 141/103 H 10/01/23 22:20 18 10/01/23 22:19 93 H 100 10/01/23 22:14 87 100 10/01/23 22:11 91 H 123/72 10/01/23 22:10 18 10/01/23 22:09 95 H 100 10/01/23 22:04 87 100 10/01/23 22:00 18 10/01/23 22:00 89 116/68 10/01/23 21:59 91 H 100 10/01/23 21:56 87 113/65 10/01/23 21:54 83 99 10/01/23 21:50 18 10/01/23 21:49 90 99 10/01/23 21:48 91 H 92 10/01/23 21:45 89 112/55 L 10/01/23 21:44 83 100 10/01/23 21:40 36.8 C 10/01/23 21:40 18 10/01/23 21:40 92 H 119/62 10/01/23 21:39 102 H 100 10/01/23 21:30 18 10/01/23 19:44 36.8 C 18 10/01/23 19:42 106 H 145/90 H Supervising Physician <Leann Whitt MD, FACOG - Last Filed: 10/02/23 07:11> Co-Signing Physician Notes Resident Physician Supervision Note: I interviewed and examined the patient. Discussed with PGY 1 and agree with findings and plan as documented in the note. Any exceptions or clarifications are listed here: POD 1/2. Doing well. Pain controlled. Vitals stable. Dressing clean/dry. Routine ppd/pod 1--davis out, void, adat, ambulate. Documented By: Leann Whitt MD, FACOG Resident Activity Tracking <Max Jc MD - Last Filed: 10/02/23 07:10> Resident Involvement: Resident Care Provided Care Provided: OB Delivery
[2023-10-02] MEDS: FERROUS SULFATE 325 MG TAB PO SCH (07:25)
[2023-10-02] MEDS: IBUPROFEN 600 MG TAB PO PRN (07:25)
[2023-10-02] MEDS: DOCUSATE SODIUM 100 MG CAP PO SCH (07:25)
[2023-10-02] MEDS: SIMETHICONE 80 MG CHEW PO SCH (07:25)
[2023-10-02] MEDS: PRENATAL VITAMIN 1 TAB PO SCH (07:25)
[2023-10-02 07:31] LABS: Basophils # (auto) 0.02 K/uL (0.00-0.20); Basophils % (auto) 0.2 %; Hematocrit (blood only) 33.1 % (37.0-47.0); Hemoglobin 11.1 g/dl (12.0-16.0); Immature Granulocytes # (auto) 0.03 K/uL (0.01-0.20); Immature Granulocytes % (auto) 0.4 %; Lymphocytes # (auto) 1.27 K/uL (1.20-3.40); Mean Corpuscular Hemoglobin 30.3 pg (25.0-34.0); Mean Corpuscular Hgb Conc 33.5 g/dL (32.0-36.0); Mean Corpuscular Volume 90.4 fL (80.0-100.0); Mean Platelet Volume 10.6 fL (9.4-12.4); Monocytes % (auto) 7.1 %; Neutrophils # (auto) 6.54 K/uL (1.40-6.50); Neutrophils % (auto) 77.3 %; Platelet Count 183 K/uL (130-400); RDW Coefficient of Variation 14.5 % (11.5-14.5); RDW Standard Deviation 47.8 fL (36.4-46.3); Red Blood Count 3.66 M/uL (4.20-5.40); White Blood Count 8.46 K/ul (4.8-10.8)
[2023-10-02] MEDS: DIPHTHER/TETAN/PERTUS Vaccine (Tdap, Adol/Adult) 0.5mL IM ONE (09:09)
[2023-10-02] MEDS ORDERED: ONDANSETRON INJ 2 MG/ML 2 ML VIAL IV PRN (13:59)
[2023-10-02] MEDS ORDERED: diphenhydrAMINE 50 MG/ML VIAL IV PRN (13:59)
[2023-10-02] MEDS ORDERED: PROMETHAZINE HCL 25 MG in SODIUM CHLORIDE 0.9% 50 ML IV PRN (13:59)
[2023-10-02] MEDS ORDERED: KETOROLAC 30 MG/ML VIAL IV PRN (13:59)
[2023-10-02] MEDS ORDERED: MEPERIDINE HCL 50 MG/ML CARP IV PRN (13:59)
[2023-10-02] MEDS ORDERED: diphenhydrAMINE Capsule 25 MG CAP PO PRN (13:59)
[2023-10-02] MEDS ORDERED: oxyCODONE/ACETAMINOPHEN 5mg/325mg TAB PO PRN (13:59)
[2023-10-02] MEDS: bisacodyL 5 MG TABEC PO SCH (20:14)
[2023-10-03 06:08] LABS: Hematocrit (blood only) 28.3 % (37.0-47.0); Hemoglobin 9.3 g/dl (12.0-16.0)
--- NOTE | 2023-10-03 07:02 | Obstetrical Progress Note ---
Date of Service October 03, 2023 Assessment & Plan (1) care following delivery: Plan stable, doing well. desires dc home, instructions reviewed. 6wk pp check. breast/rhpos/ri. checked on papdmp and no issues, 5 percocet sent, see hpi. hgb noted. Day #:: 2 Subjective Ambulation: ambulating normally Voiding: no voiding problems Diet Tolerance:: regular diet Lochia:: Small Feeding Type:: breast feeding pt tired, up through the night with baby and baby finally settled down. no concerns. wants to go home. does not want alot of percocet, asked for 3 tabs but agreed i would send 5. Constitutional: + as per Subjective / HPI Physical Exam Constitutional WD/WN, vitals as above Respiratory normal respiratory effort, lungs clear to auscultation Cardiovascular Rate/Rhythm: regular rate and regular rhythm Gastrointestinal (Abdomen) Inspection/Auscultation: abdomen normal to inspection and + abdominal surgical incision (c/d/i with steris with dried blood. ) Percussion/Palpation: abdomen soft fundus firm 1-2 cm below umbilicus Musculoskeletal nt calves no edema Neurologic grossly normal Psychiatric A+Ox3, euthymic affect Results & Data Vital Signs (Past 12 Hours) Vital Signs Temp Pulse Resp BP Pulse Ox O2 Del Method 10/03/23 00:37 98.2 F 96 H 18 107/67 97 Room Air 10/02/23 20:10 98.2 F 90 18 108/73 98 Room Air
[2023-10-03] MEDS: ACETAMINOPHEN 325 MG TAB PO PRN (11:04)
[2023-10-03] MEDS ORDERED: bisacodyL 10 MG SUPP PR PRN (21:46)
== END 2023-10-03 13:45 | disposition home or self-care (01) | DRG 785 ==
LOC: OPB 19:37 → 4S1 19:38 → 4E2 10-02 00:32